=== PATIENT | female | born 1985 | race Caucasian/White ===

== ENCOUNTER 2018-07-24 15:46 | Emergency (ER) | payer BC, SELFPAY ==
[2018-07-24 15:48] VITALS: BP 110/85; PULSE 130; RESP 16; TEMP 37.1; O2SAT 96
--- NOTE | 2018-07-24 16:01 | DI.CT_ITS ---
SYMPTOMS/DIAGNOSIS: ABDOMINAL PAIN, RLQ, ? APPENDIX, KIDNEY STONE, UTI CT SCAN OF THE ABDOMEN AND PELVIS: CT scan of the abdomen and pelvis was performed following the uneventful administration of intravenous contrast material. There are no priors for comparison. In the lung bases, there is an air-space opacity in the left lower lobe seen on the upper-most images. This may represent atelectasis or pneumonia. The lungs are otherwise clear. The liver has a normal size. No suspicious hepatic masses are seen. The portal and superior mesenteric veins are patent. The gallbladder is negative. No biliary ductal dilatation is seen. The pancreas, spleen and adrenal glands are unremarkable. The kidneys show normal and symmetric enhancement. No evidence of a solid renal mass or obstruction. The urinary bladder is intact. The reproductive organs are visualized and are unremarkable, except for a 2.7 cm cystic structure seen in the right adnexa, which appears separate from the right ovary. Differential considerations include a paraovarian cyst. Tuboovarian abscess or other cystic pelvic structures cannot be excluded. There is a normal appendix present. There are mildly dilated loops of small bowel proximally. The mid and distal small bowel is of normal caliber. This may represent a focal ileus or early obstruction. The colon appears unremarkable. The abdominal aorta is of normal caliber. No significant abdominal or pelvic adenopathy, ascites or pneumoperitoneum is present. The bones are intact. Minimal degenerative changes are seen in the lower thoracic spine and L5-S1. IMPRESSION: 1. Air-space opacity in the left lung base. This may represent atelectasis or pneumonia. 2. Mildly dilated loops of proximal small bowel with normal mid and distal caliber small bowel. This may represent a focal ileus or early obstruction. Please correlate clinically. 3. Almost 3 cm cystic structure in the right adnexa. Differential considerations include a paraovarian cyst or other cystic structures. A tuboovarian abscess cannot be excluded. Please correlate clinically. 4. Normal appendix.
--- NOTE | 2018-07-24 16:05 | W.ED.GENAD ---
Discharge Plan Disposition Patient Disposition: HOME Condition: Good Discharge Details Chief Complaint: FlankPain Clinical Impression: Ovarian cyst Primary Care Provider: Gordo Linton ED Provider: Jose Maria Amezquita Home Meds and New Rx's Prescriptions: Continue PNV cmb#95-ferrous fumarate-FA [] 1 EACH tablet 1 ea PO QD Qty: 90 RF: 4 ibuprofen 200 MG capsule 800 mg PO Q6H PRN RF: 0 gabapentin 300 MG capsule 2 cap PO BID MDD 1500 Qty: 360 RF: 6 ranitidine HCl 150 MG capsule 150 mg PO BID Qty: 180 RF: 3 acetaminophen [Tylenol] 325 MG tablet 650 mg PO Q4H PRN PRNRF: 0 Discontinued iwuuyqoiig-szfvkmzlyluyy-jago 1 EACH tablet 1 tab-cap PO Q4H PRN PRNQty: 60 RF: 1 albuterol sulfate [ProAir HFA] 8.5 GM HFA aerosol inhaler 2 puff Inhalation Q6H PRN Qty: 1 RF: 4 amoxicillin-pot clavulanate [Augmentin] 1 EACH tablet 1 tab-cap PO Q12H Qty: 20 RF: 0 Discharge Instructions Instructions: Ovarian Cyst (ED) Additional Instructions: Return immediately for any new or significant worsening of symptoms including severe increase in pain, fever chills, persistent nausea vomiting. Otherwise call women's wellness center and follow-up with OB as needed for reassessment of ovarian cyst. Referrals: [facility] [Provider Group] (Please call the office for arrangement of follow-up appointment in the next couple weeks. ) Medical Decision Making Patient being sent over from the urgent care clinic for chief complaint of right flank pain. Patient states that this started yesterday in the flank but now is specifically more tender in the right lower quadrant. Physical exam is positive for significant right quadrant tenderness and also right CVA tenderness that is moderate. Physical exam is otherwise unremarkable. Patient offered pain medication pending results of labs and CT imaging but she denied any need for medication at this time for pain but requested nausea meds. Zofran was ordered. Review of CT imaging shows possible concerning finding of a cyst that is 3 cm x 1.4 cm adjacent to the right ovary which radiologist states is possible tubo-ovarian abscess. Radiologist also states consolidation left lower lobe may represent atelectasis or pneumonia which I feel is more atelectasis given the patient is afebrile with clear lung sounds, she mentions normal appendix, and dilated loops of small bowel may represent obstruction versus ileus. Patient is passing gas and having normal bowel movements so I doubt obstruction so I do not feel that any further investigation is needed. Vaginal exam was performed and patient does have mild cervical motion tenderness with some right adnexal tenderness. Swabs were sent but physical exam was otherwise unremarkable. spoke with LEAK PATCHER on-call and Dr. William who recommended a ultrasound for further evaluation. We were able to get a hvac/r service technician to come in after hours and perform this study. Patient is stable, afebrile, no significant leukocytosis on labs and labs are otherwise nondiagnostic. Ultrasound shows a paraovarian cysts with no other abnormalities. Patient reassessed and states improvement in discomfort after receiving ketorolac injection and remains afebrile and otherwise stable. Discussed with patient need to come back for any new or significant worsening of symptoms including fever chills, severe worsening of pain, nausea vomiting. Patient otherwise to follow-up with women's wellness later this week. I did communicate ultrasound imaging results to OB on-call. After discussion of diagnosis and plan of care patient has no further needs, questions, or concerns and states clear understanding to return to the emergency department for any worsening symptoms. patient was encouraged to utilize ibuprofen [id number] as needed for pain control HPI General Mode of arrival: ambulatory. Date/Time Provider Initiated Documentation: 07/24/18 15:53. Limitations to Documentation: no limitations. Information obtained by: patient, RN/MD and RN notes reviewed. History of Present Illness 32 year old F presents to the emergency department with the chief complaint of Right abd/flank pain, described as mild, Quality is described as aching (crampy), and is localized to the abdomen. Patient flank. Patient started experiencing this day(s) (1) and it has been constant. No exacerbating factors reported . Patient did receive the following treatments prior to arrival, NSAID Related Data Home Medications Medication Instructions Recorded Confirmed acetaminophen [Tylenol] 650 mg PO Q4H PRN PRN tab 02/17/16 03/20/18 PNV cmb#95-ferrous fumarate-FA 1 ea PO QD #90 tab 07/29/17 [] ibuprofen 800 mg PO Q6H PRN tab-cap 11/21/17 06/22/18 gabapentin 2 cap PO BID #360 tab-cap MDD 1500 10/21/17 ranitidine HCl 150 mg PO BID #180 tab-cap 01/02/18 Previous Rx's Medication Instructions Recorded acetaminophen [Tylenol] 650 mg PO Q4H PRN PRN tab 02/17/16 PNV cmb#95-ferrous fumarate-FA 1 ea PO QD #90 tab 07/29/17 [] gabapentin 2 cap PO BID #360 tab-cap MDD 1500 10/21/17 ranitidine HCl 150 mg PO BID #180 tab-cap 01/02/18 Allergies Allergy/AdvReac Type Severity Reaction Status Date / Time latex AdvReac Mild ITCHING,DRY Unverified 03/23/18 15:24 SKIN General Stated Complaint: FlankPain JACY: 3 Review of Systems Constitutional Reports chills, Reports fever(s) and Reports poor appetite ENT Reports nasal congestion and Reports sore throat Cardiovascular Denies chest pain and Denies dyspnea Respiratory Reports cough and Denies dyspnea Gastrointestinal Reports as per HPI, Reports abdominal pain, Denies melena, Denies change in bowel habits, Denies constipation, Denies diarrhea, Reports nausea and Denies vomiting Genitourinary Denies hematuria, Reports dysuria, Denies urinary incontinence, Denies urinary hesitancy and Denies urinary urgency Integumentary/Breasts Denies rash PFSH Family History Grandfather Essential hypertension Heart disease Family history of colon cancer Grandmother Essential hypertension Diabetes Heart disease aunt Diabetes Mother No problems noted. Father Essential hypertension Alcohol abuse Hyperlipidemia Sister Mental disorder Asthma Brother No problems noted. Grandfather Heart disease Grandmother No problems noted. Social History Smoking/Tobacco Use Status: Former Tobacco Use Surgical History Ligation of fallopian tube (02/16/16) Exam Const General: cooperative Orientation: alert, awake and oriented x3 Resp Effort & Inspection: normal respiratory effort and able to speak in complete sentences Auscultation: clear to auscultation bilaterally Cardio Rate: regular rate Rhythm: regular rhythm Heart Sounds: S1 normal and S2 normal GI Palpation: soft, no hepatosplenomegaly, not firm, no guarding, no masses, no pulsatile masses, not rigid, no splenomegaly and tender in the RLQ, at McBurney's point and Rovsing's sign positive; Starks's sign negative Auscultation: normal bowel sounds General: other External Female Exam: external appearance normal Speculum Exam - Vagina: normal appearance of the vagina and normal vaginal discharge Speculum Exam - Cervix: normal appearance of the cervix Bimanual Exam- Vagina & Uterus: normal vaginal palpation and cervical motion tenderness Bimanual Exam- Adnexa, other: adnexal tenderness on the right Back/Spine/Pelvis Back: CVA tenderness (right side) Neuro General: alert, awake, oriented x3, gait normal and moves all extremities Course Vital Signs Temperature 37.1 C 07/24/18 15:48 Pulse 130 H 07/24/18 15:48 Respiratory Rate 16 07/24/18 15:48 Blood Pressure 110/85 07/24/18 15:48 Pulse Oximetry 96 07/24/18 15:48 Temperature 37.1 C 07/24/18 15:48 Temperature Source Skin 07/24/18 15:48 Pulse 130 H 07/24/18 15:48 Respiratory Rate 16 07/24/18 15:48 Respiratory Effort 07/24/18 15:51 Blood Pressure 110/85 07/24/18 15:48 Blood Pressure Position Sitting 07/24/18 15:48 Pulse Oximetry 96 07/24/18 15:48 Oxygen Delivery Method Room Air 07/24/18 15:48 Oxygen Flow Rate 0 07/24/18 15:48 Pain Level 5 07/24/18 15:52
--- NOTE | 2018-07-24 16:09 | ED.GENADUL_ITS ---
Discharge Plan Disposition Patient Disposition: HOME Condition: Good Discharge Details Chief Complaint: FlankPain Clinical Impression: Ovarian cyst Primary Care Provider: Gordo Linton ED Provider: Jose Maria Amezquita Home Meds and New Rx's Prescriptions: Continue PNV cmb#95-ferrous fumarate-FA [] 1 EACH tablet 1 ea PO QD Qty: 90 RF: 4 ibuprofen 200 MG capsule 800 mg PO Q6H PRN RF: 0 gabapentin 300 MG capsule 2 cap PO BID MDD 1500 Qty: 360 RF: 6 ranitidine HCl 150 MG capsule 150 mg PO BID Qty: 180 RF: 3 acetaminophen [Tylenol] 325 MG tablet 650 mg PO Q4H PRN PRNRF: 0 Discontinued oxaxtbjovl-ysocspkwqbjbq-dlki 1 EACH tablet 1 tab-cap PO Q4H PRN PRNQty: 60 RF: 1 albuterol sulfate [ProAir HFA] 8.5 GM HFA aerosol inhaler 2 puff Inhalation Q6H PRN Qty: 1 RF: 4 amoxicillin-pot clavulanate [Augmentin] 1 EACH tablet 1 tab-cap PO Q12H Qty: 20 RF: 0 Discharge Instructions Instructions: Ovarian Cyst (ED) Additional Instructions: Return immediately for any new or significant worsening of symptoms including severe increase in pain, fever chills, persistent nausea vomiting. Otherwise call women's wellness center and follow-up with OB as needed for reassessment of ovarian cyst. Referrals: [facility] [Provider Group] (Please call the office for arrangement of follow-up appointment in the next couple weeks. ) Medical Decision Making Patient being sent over from the urgent care clinic for chief complaint of right flank pain. Patient states that this started yesterday in the flank but now is specifically more tender in the right lower quadrant. Physical exam is positive for significant right quadrant tenderness and also right CVA tenderness that is moderate. Physical exam is otherwise unremarkable. Patient offered pain medication pending results of labs and CT imaging but she denied any need for medication at this time for pain but requested nausea meds. Zofran was ordered. Review of CT imaging shows possible concerning finding of a cyst that is 3 cm x 1.4 cm adjacent to the right ovary which radiologist states is possible tubo- ovarian abscess. Radiologist also states consolidation left lower lobe may represent atelectasis or pneumonia which I feel is more atelectasis given the patient is afebrile with clear lung sounds, she mentions normal appendix, and dilated loops of small bowel may represent obstruction versus ileus. Patient is passing gas and having normal bowel movements so I doubt obstruction so I do not feel that any further investigation is needed. Vaginal exam was performed and patient does have mild cervical motion tenderness with some right adnexal tenderness. Swabs were sent but physical exam was otherwise unremarkable. spoke with BRIDGE CRANE OPERATOR on-call and Dr. William who recommended a ultrasound for further evaluation. We were able to get a paint prep technician to come in after hours and perform this study. Patient is stable, afebrile, no significant leukocytosis on labs and labs are otherwise nondiagnostic. Ultrasound shows a paraovarian cysts with no other abnormalities. Patient reassessed and states improvement in discomfort after receiving ketorolac injection and remains afebrile and otherwise stable. Discussed with patient need to come back for any new or significant worsening of symptoms including fever chills, severe worsening of pain, nausea vomiting. Patient otherwise to follow-up with women's wellness later this week. I did communicate ultrasound imaging results to OB on-call. After discussion of diagnosis and plan of care patient has no further needs, questions, or concerns and states clear understanding to return to the emergency department for any worsening symptoms. patient was encouraged to utilize ibuprofen [id number] as needed for pain control HPI General Mode of arrival: ambulatory . Date/Time Provider Initiated Documentation: 07/24/18 15:53 . Limitations to Documentation: no limitations . Information obtained by: patient, RN/MD and RN notes reviewed . History of Present Illness 32 year old F presents to the emergency department with the chief complaint of Right abd/flank pain, described as mild, Quality is described as aching ( crampy), and is localized to the abdomen. Patient flank. Patient started experiencing this day(s) (1) and it has been constant. No exacerbating factors reported . Patient did receive the following treatments prior to arrival, NSAID Related Data Home Medications Medication Instructions Recorded Confirmed acetaminophen [Tylenol] 650 mg PO Q4H PRN PRN tab 02/17/16 03/20/18 PNV cmb#95-ferrous fumarate-FA 1 ea PO QD #90 tab 07/29/17 [] ibuprofen 800 mg PO Q6H PRN tab-cap 11/21/17 06/22/18 gabapentin 2 cap PO BID #360 tab-cap MDD 1500 10/21/17 ranitidine HCl 150 mg PO BID #180 tab-cap 01/02/18 Previous Rx's Medication Instructions Recorded acetaminophen [Tylenol] 650 mg PO Q4H PRN PRN tab 02/17/16 PNV cmb#95-ferrous fumarate-FA 1 ea PO QD #90 tab 07/29/17 [] gabapentin 2 cap PO BID #360 tab-cap MDD 1500 10/21/17 ranitidine HCl 150 mg PO BID #180 tab-cap 01/02/18 Allergies Allergy/AdvReac Type Severity Reaction Status Date / Time latex AdvReac Mild ITCHING,DRY Unverified 03/23/18 15:24 SKIN General Stated Complaint: FlankPain JACY: 3 Review of Systems Constitutional Reports chills, Reports fever(s) and Reports poor appetite ENT Reports nasal congestion and Reports sore throat Cardiovascular Denies chest pain and Denies dyspnea Respiratory Reports cough and Denies dyspnea Gastrointestinal Reports as per HPI, Reports abdominal pain, Denies melena, Denies change in bowel habits, Denies constipation, Denies diarrhea, Reports nausea and Denies vomiting Genitourinary Denies hematuria, Reports dysuria, Denies urinary incontinence, Denies urinary hesitancy and Denies urinary urgency Integumentary/Breasts Denies rash PFSH Family History Grandfather Essential hypertension Heart disease Family history of colon cancer Grandmother Essential hypertension Diabetes Heart disease aunt Diabetes Mother No problems noted. Father Essential hypertension Alcohol abuse Hyperlipidemia Sister Mental disorder Asthma Brother No problems noted. Grandfather Heart disease Grandmother No problems noted. Social History Smoking/Tobacco Use Status: Former Tobacco Use Surgical History Ligation of fallopian tube (02/16/16) Exam Const General: cooperative Orientation: alert, awake and oriented x3 Resp Effort & Inspection: normal respiratory effort and able to speak in complete sentences Auscultation: clear to auscultation bilaterally Cardio Rate: regular rate Rhythm: regular rhythm Heart Sounds: S1 normal and S2 normal GI Palpation: soft, no hepatosplenomegaly, not firm, no guarding, no masses, no pulsatile masses, not rigid, no splenomegaly and tender in the RLQ, at McBurney' s point and Rovsing's sign positive; Starks's sign negative Auscultation: normal bowel sounds General: other External Female Exam: external appearance normal Speculum Exam - Vagina: normal appearance of the vagina and normal vaginal discharge Speculum Exam - Cervix: normal appearance of the cervix Bimanual Exam- Vagina & Uterus: normal vaginal palpation and cervical motion tenderness Bimanual Exam- Adnexa, other: adnexal tenderness on the right Back/Spine/Pelvis Back: CVA tenderness (right side) Neuro General: alert, awake, oriented x3, gait normal and moves all extremities Course Vital Signs Temperature 37.1 C 07/24/18 15:48 Pulse 130 H 07/24/18 15:48 Respiratory Rate 16 07/24/18 15:48 Blood Pressure 110/85 07/24/18 15:48 Pulse Oximetry 96 07/24/18 15:48 Temperature 37.1 C 07/24/18 15:48 Temperature Source Skin 07/24/18 15:48 Pulse 130 H 07/24/18 15:48 Respiratory Rate 16 07/24/18 15:48 Respiratory Effort 07/24/18 15:51 Blood Pressure 110/85 07/24/18 15:48 Blood Pressure Position Sitting 07/24/18 15:48 Pulse Oximetry 96 07/24/18 15:48 Oxygen Delivery Method Room Air 07/24/18 15:48 Oxygen Flow Rate 0 07/24/18 15:48 Pain Level 5 07/24/18 15:52
[2018-07-24] MEDS: Ondansetron 4 MG/2 ML VIAL IVP (16:22)
[2018-07-24] MEDS: Normal Saline 1,000 ML 1000 ML IV (16:22)
[2018-07-24 16:26] LABS: Abs Immature Grans 0.02 k/cumm (0.0-0.09); Absolute Basophil Count 0.02 k/cumm (0.0-0.2); Absolute Eosinophil Count 0.02 k/cumm (0.0-0.7); Absolute Lymphocyte Count 1.67 k/cumm (1.2-3.4); Absolute Monocyte Count 0.81 k/cumm (0.11-0.7); Absolute Neutrophil Count 6.54 k/cumm (1.2-6.7); Basophils % 0.2; Eosinophils % 0.2; HCT 43.4 % (36.0-46.0); HGB 14.3 g/dL (12.0-15.5); Immature Grans % 0.2; Lymphocytes % 18.4; Mean Corp. HGB Concentration 32.9 g/dL (32.0-36.0); Mean Corpuscular Hemoglobin 27.9 pg (27.0-33.0); Mean Corpuscular Volume 84.8 fL (80-95); Mean Platelet Volume 10.9 fL (8.0-11.0); Monocytes % 8.9; Neutrophils % 72.1; Platelet Count 273 x1000/uL (130-400); RBC 5.12 m/cumm (4.00-5.20); RBC Distribution Width 13.3 % (11.7-14.6); White Blood Cell Count 9.08 k/cumm (4.4-10.8)
[2018-07-24 16:34] LABS: Bilirubin Negative (Negative); Blood Moderate (Negative); Clarity Clear; Glucose Negative (Negative); Ketones 15 mg/dL (Negative); Leukocyte Esterase Negative (Negative); Nitrite Negative (Negative); Specific Gravity <= 1.005 (1.005-1.025); Urobilinogen 0.2 EU/dL (Up TO 0.2)
[2018-07-24 16:40] LABS: ALT 52 U/L (12-78); AST 42 U/L (15-37); Albumin 3.8 g/dL (3.4-5.0); Alkaline Phosphatase 111 U/L (46-116); Anion Gap 12.4 mmol/L (3-11); BUN 12 mg/dL (7-18); Bilirubin, Total 0.4 mg/dL (0.2-1.0); CO2 25.6 mmol/L (21.0-32.0); Calcium 9.2 mg/dL (8.5-10.1); Chloride 97 mmol/L (98-107); Glucose 85 mg/dL (70-100); Lipase 86 U/L (73-393); Sodium 135 mmol/L (136-145); Total Protein 8.2 g/dL (6.4-8.2)
[2018-07-24 16:51] LABS: Bacteria Few HPF (Negative); C & S Indicated? No; Casts Negative LPF (Negative); Crystals Negative HPF (Negative); Epithelial Cells Moderate HPF (Negative); Mucus Negative (Negative); Other Cells Negative (Negative); RBC Negative (0-2)
[2018-07-24] MEDS: Omnipaque 350 MG/ML 100 ML BTL IJ (16:52)
--- NOTE | 2018-07-24 17:21 | DI.VRAD_ITS ---
EXAM: CT Abdomen and Pelvis With Intravenous Contrast EXAM DATE/TIME: 07/24/2018 4:03 PM CLINICAL HISTORY: 32 years old, female; Pain; Abdominal pain; Generalized TECHNIQUE: Axial computed tomography images of the abdomen and pelvis with intravenous contrast. Coronal and sagittal reformatted images were created and reviewed. COMPARISON: [facility] [place] [facility] ULTRASOUND 07/13/2015 1:31 PM FINDINGS: Lower thorax: Consolidation in the left lower lobe may represent atelectasis or pneumonia. ABDOMEN: Liver: Normal. No mass. Gallbladder and bile ducts: Normal. No calcified stones. No ductal dilation. Pancreas: Normal. No ductal dilation. Spleen: Normal. No splenomegaly. Adrenals: Normal. No mass. Kidneys and ureters: Normal. No hydronephrosis. Stomach and bowel: Dilated loops of small bowel may represent obstruction or ileus. Small bowel tapers distally. Low-attenuation bowel wall thickening is seen throughout the colon consistent with colitis. Differential diagnosis includes decompressed bowel.. Appendix: Normal appendix. PELVIS: Bladder: Unremarkable as visualized. Reproductive: 3 x 1.4 cm right adnexal cystic structure appears separate from the right ovary.. ABDOMEN and PELVIS: Intraperitoneal space: Normal. No free air. No significant fluid collection. Bones/joints: No acute fracture. No dislocation. Soft tissues: Unremarkable. Vasculature: Normal. No abdominal aortic aneurysm. Lymph nodes: Normal. No enlarged lymph nodes. IMPRESSION: 1. Consolidation in the left lower lobe may represent atelectasis or pneumonia. 2. Dilated loops of small bowel may represent obstruction or ileus. Small bowel tapers distally. 3. Normal appendix. 4. 3 x 1.4 cm right adnexal cystic structure appears separate from the right ovary. May represent paraovarian cyst. Differential includes infection/tubo-ovarian abscess 5. Low-attenuation bowel wall thickening is seen throughout the colon consistent with colitis. Differential diagnosis includes decompressed bowel.. Impression. Dictated and Authenticated by: Blanche Velasco MD. Ordering:JENNIFER BERNAL MD
[2018-07-24] MEDS: Acetaminophen 500 MG TAB 1000 MG PO (17:43)
--- NOTE | 2018-07-24 19:21 | DI.US_ITS ---
SYMPTOMS/DIAGNOSIS: ABNORMAL CT FINDINGS, POSSIBLE TUBOOVARIAN ABSCESS PELVIC ULTRASOUND: Comparison CT scan from the same day. The uterus measures 9.1 x 3.7 x 5.5 cm. The endometrial stripe is within normal limits at 0.4 cm. No suspicious uterine masses are seen. The left ovary measures 2.8 x 2.9 x 2.3 cm. Small follicular cysts are seen. There is normal blood flow. No evidence of torsion is seen. The right ovary measures 3.5 x 1.7 x 3.2 cm. Small follicular cysts are present. There is normal blood flow seen to the right ovary. There is a 2.8 x 3.8 x 1.6 cm cystic structure superior and adjacent to the right ovary. This may represent a paraovarian cyst. No solid component is present in the cystic structure. No free pelvic fluid is seen. No hydronephrosis is present. IMPRESSION: 1. A 3.8 cm simple cystic structure adjacent to the right ovary, which may represent a paraovarian cyst. 2. Otherwise normal appearance of the ovaries and uterus.
[2018-07-24] MEDS: Ketorolac 30 MG/ML VIAL IVP (19:28)
[2018-07-24 19:50] VITALS: BP 96/59; PULSE 109; RESP 20; TEMP 37.1; O2SAT 95
--- NOTE | 2018-07-24 21:24 | DI.VRAD_ITS ---
EXAM: US Pelvis Complete, Transabdominal and US Pelvis, Transvaginal EXAM DATE/TIME: 07/24/2018 7:24 PM CLINICAL HISTORY: 32 years old, female; Pain; Pelvic pain TECHNIQUE: Real-time transabdominal and transvaginal pelvic ultrasound (complete) with image documentation. Transvaginal imaging was used for better evaluation of the endometrium and adnexa. COMPARISON: CT ABDOMEN PELVIS W 07/24/2018 4:32 PM FINDINGS: Uterus/cervix: Uterus measures 9.1 x 5.5 x 3.7 cm Endometrium 4 mm Right adnexa: Right ovary 3.5 x 3.2 x 1.7 cm Cystic structure superior to the right ovary measures 2.8 x 3.8 x 1.6 cm and may represent a paraovarian cyst Left adnexa: Left ovary measures 2.8 x 2.3 x 2.9 cm Free fluid: None. Bladder: Normal. Vasculature: No duplex assessment; consequently torsion cannot be ruled out. If torsion is suspected clinically, recommend repeat study with duplex assessment of both ovaries. Other findings: Left kidney 11.7 cm; right kidney 10.7 cm. No hydronephrosis or mass IMPRESSION: No duplex assessment; consequently torsion cannot be ruled out. If torsion is suspected clinically, recommend repeat study with duplex assessment of both ovaries. Cystic structure superior to the right ovary measures 2.8 x 3.8 x 1.6 cm and may represent a paraovarian cyst Dictated and Authenticated by: Blanche Velasco MD. Ordering:JENNIFER BERNAL MD
[2018-07-24 21:54] VITALS: BP 101/59; PULSE 109; RESP 20; TEMP 37.1; O2SAT 95
[2018-07-27 15:22] LABS: Chlamydia Result Negative; GC Result Negative; Specimen Description CERVIX
== END 2018-07-24 21:54 | disposition home or self-care (01) ==
PROVIDERS: Emergency Provider Nurse Practitioner Family; PCP Family Medicine
DX: N83.201 Unspecified ovarian cyst, right side (principal)
CPT/HCPCS: 36415; 80053; 83690; 87491; 87591; 96361; 96374; 96375; 99285; 74177; 76830; 76856; 81003; 81015; 85025; 87480; 87510; 87660; J1885; J2405; J3490

== ENCOUNTER 2018-07-28 13:20 | Outpatient (REF) | payer BC, SELFPAY | END 2018-07-28 13:40 | LOC: LBN 13:20 | PROVIDERS: PCP Family Medicine; Visit Provider Family Medicine | DX: J00 Acute nasopharyngitis [common cold] (principal) | CPT/HCPCS: 87449 ==

== ENCOUNTER 2018-08-02 08:58 | Emergency (ER) | payer BC, SELFPAY ==
[2018-08-02] VITALS (7 sets, daily range): BP systolic 112–177; BP diastolic 68–77; PULSE 96–103; RESP 4–18; TEMP 36.5–36.8; O2SAT 91–97
--- NOTE | 2018-08-02 09:09 | DI.RAD_ITS ---
SYMPTOM/DIAGNOSIS: COUGH, SOB PA AND LATERAL CHEST: Comparison is made with 08/02/14. Heart size and pulmonary vasculature are within normal limits. There are increased lung markings at the lateral aspect of the left heart border which may represent atelectasis or pneumonia. The lungs are otherwise clear. No effusions or pneumothoraces are identified. The bones are intact. IMPRESSION: Question of a left basilar infiltrate. This may represent atelectasis or pneumonia.
[2018-08-02] MEDS: predniSONE 20 MG TAB 60 MG PO (09:15)
[2018-08-02] MEDS: Albuterol/Ipratropium 3 ML UPD VIAL UPD (09:15)
--- NOTE | 2018-08-02 10:22 | DI.VRAD_ITS ---
EXAM: XR Chest, 2 Views EXAM DATE/TIME: 08/02/2018 9:41 AM CLINICAL HISTORY: 32 years old, female; Signs and symptoms; Other: Cough; Additional info: PT stated cough for a wk and PT have asthma TECHNIQUE: XR of the chest, 2 views. COMPARISON: CR CHEST 2 VIEWS PA,LAT 08/02/2014 7:33 PM FINDINGS: Lungs: Mild opacity in the left base may represent minimal atelectasis or pneumonia. It was not present on the prior study. Pleural space: Unremarkable. No pleural effusion. No pneumothorax. Heart/Mediastinum: Stable cardiac silhouette Bones/joints: Osseous structures are stable IMPRESSION: Mild opacity in the left base may represent minimal atelectasis or pneumonia. It was not present on the prior study. Dictated and Authenticated by: Blanche Velasco MD. Ordering:DINORAH GREEN MD
--- NOTE | 2018-08-02 10:59 | ED.GENADUL_ITS ---
Discharge Plan Disposition Patient Disposition: HOME Discharge Details Chief Complaint: RespSymp Clinical Impression: Acute asthma exacerbation, Pneumonia Primary Care Provider: Gordo Linton ED Provider: Dutch Alba Home Meds and New Rx's Prescriptions: New prednisone 20 mg tablet 20 mg PO BID Qty: 8 RF: 0 levofloxacin [Levaquin] 750 mg tablet 750 mg PO DAILY Qty: 4 RF: 0 fluconazole 150 mg tablet 150 mg PO Q3D 0 Days RF: 0 ipratropium-albuterol 0.5 mg-3 mg(2.5 mg base)/3 mL solution for nebulization 3 ml IH QID Qty: 90 RF: 0 Continue promethazine-codeine 6.25-10 mg/5 mL syrup 5 ml PO Q6H PRN (Reason: cough) Qty: 118 RF: 0 benzonatate 100 mg capsule 100 mg PO TID PRN (Reason: cough) Qty: 30 RF: 2 qwcsvzbmol-fojjqslugb-tvx-cod [id number] mg capsule 2 cap PO Q4H PRN (Reason: pain) Qty: 90 RF: 2 PNV cmb#95-ferrous fumarate-FA [] 1 EACH tablet 1 ea PO QD Qty: 90 RF: 4 ibuprofen 200 MG capsule 800 mg PO Q6H PRN RF: 0 gabapentin 300 MG capsule 2 cap PO BID MDD 1500 Qty: 360 RF: 6 ranitidine HCl 150 MG capsule 150 mg PO BID Qty: 180 RF: 3 acetaminophen [Tylenol] 325 MG tablet 650 mg PO Q4H PRN PRNRF: 0 Discontinued albuterol sulfate 1.25 mg/3 mL solution for nebulization 1.25 mg IH QID PRN (Reason: shortness of breath or wheezing) Qty: 15 RF: 3 ondansetron HCl 4 mg tablet 4 mg PO QID PRN (Reason: nausea and vomiting) Qty: 14 RF: 1 Discharge Instructions Instructions: Asthma (ED), Pneumonia (ED) Additional Instructions: Please use albuterol inhaler with spacer 2 puffs every 4 hours as needed for shortness of breath and wheeze. Take antibiotic and prednisone as prescribed. Please contact your primary care physician to arrange follow-up. Return to the ER for any worsening or new concerning symptoms. Use fluconazole for yeast infection ONLY AFTER COMPLETING LEVAQUIN (antibiotic) . Stand Alone Forms: Work Release Referrals: Gordo Linton MD [Primary Care Provider] - Discharge Data Discharge Date/Time-TO BE ENTERED AT DEPARTURE: 08/02/18 12:19 Medical Decision Making 10:30 --32-year-old female with history of asthma, here with cough for the past 9 days, intermittently productive, now with shortness of breath and wheeze. Saturating low 90s. Wheezing. Will give duoneb x2 and predisone. 11:00 --chest x-ray interpreted by radiology: Mild opacity in left base may represent minimal atelectasis or pneumonia. It was not present on the prior study. Given her symptoms, I am worried about pneumonia. Plan to treat with Levaquin. Patient reassessed after 2 neb treatment. Breathing much easier. Feels better. Still with some wheeze on auscultation. Will repeat albuterol neb. 12:05 --patient improved after third neb treatment. Speaking in complete sentences with no resp distress. Patient requesting discharge. Saturating well. BP improved. I discussed with patient need to take antibiotic, prednisone and albuterol as prescribed, and need for timely follow-up with her primary care physician this week, and return to ED precautions. Patient requesting prescription for DuoNeb treatments at home. I will prescribe that she has a nebulizer machine. Patient requesting prescription for fluconazole as she has used infections in the past with antibiotic use. I reviewed medications interactions with her. She is instructed to use this only after completion of antibiotic should she have yeast infection symptoms. HPI General Mode of arrival: ambulatory . Date/Time Provider Initiated Documentation: 08/02/18 09:09 . Limitations to Documentation: no limitations . Information obtained by: patient . HPI Narrative: 32-year-old female with history of asthma, here with cough for the past 9 days, intermittently productive, now with shortness of breath and wheeze. Symptoms moderate to severe. Constant. Patient using albuterol nebs and not helping today. Some assoc pleuritic chest discomfort. No fever. Related Data Home Medications Medication Instructions Recorded Confirmed acetaminophen [Tylenol] 650 mg PO Q4H PRN PRN tab 02/17/16 08/02/18 PNV cmb#95-ferrous fumarate-FA 1 ea PO QD #90 tab 07/29/17 08/02/18 [] ibuprofen 800 mg PO Q6H PRN tab-cap 08/19/17 08/02/18 gabapentin 2 cap PO BID #360 tab-cap MDD 1500 10/21/17 08/02/18 ranitidine HCl 150 mg PO BID #180 tab-cap 01/02/18 08/02/18 benzonatate 100 mg capsule 100 mg PO TID PRN #30 cap 07/28/18 08/02/18 butalbital 50 mg-acetaminophen 325 2 cap PO Q4H PRN #90 cap 07/28/18 08/02/18 mg-caffeine 40 mg-codeine 30 mg cap promethazine 6.25 mg-codeine 10 5 ml PO Q6H PRN #118 ml 07/28/18 08/02/18 mg/5 mL syrup fluconazole 150 mg PO Q3D 0 Days tab 08/02/18 ipratropium-albuterol 3 ml IH QID #90 ml 08/02/18 levofloxacin [Levaquin] 750 mg PO DAILY #4 tab 08/02/18 prednisone 20 mg PO BID #8 tab 08/02/18 Previous Rx's Medication Instructions Recorded acetaminophen [Tylenol] 650 mg PO Q4H PRN PRN tab 02/17/16 PNV cmb#95-ferrous fumarate-FA 1 ea PO QD #90 tab 07/29/17 [] gabapentin 2 cap PO BID #360 tab-cap MDD 1500 10/21/17 ranitidine HCl 150 mg PO BID #180 tab-cap 01/02/18 benzonatate 100 mg capsule 100 mg PO TID PRN #30 cap 07/28/18 butalbital 50 mg-acetaminophen 325 2 cap PO Q4H PRN #90 cap 07/28/18 mg-caffeine 40 mg-codeine 30 mg cap promethazine 6.25 mg-codeine 10 5 ml PO Q6H PRN #118 ml 07/28/18 mg/5 mL syrup fluconazole 150 mg PO Q3D 0 Days tab 08/02/18 ipratropium-albuterol 3 ml IH QID #90 ml 08/02/18 levofloxacin [Levaquin] 750 mg PO DAILY #4 tab 08/02/18 prednisone 20 mg PO BID #8 tab 08/02/18 Allergies Allergy/AdvReac Type Severity Reaction Status Date / Time latex AdvReac Mild ITCHING,DRY Unverified 08/02/18 09:07 SKIN General Stated Complaint: RespSymp JACY: 3 Review of Systems Review of Systems All systems reviewed & are unremarkable except as noted in HPI and below Respiratory Reports cough PFSH Family History Grandfather Essential hypertension Heart disease Family history of colon cancer Grandmother Essential hypertension Diabetes Heart disease aunt Diabetes Mother No problems noted. Father Essential hypertension Alcohol abuse Hyperlipidemia Sister Mental disorder Asthma Brother No problems noted. Grandfather Heart disease Grandmother No problems noted. Medical History Gestational diabetes mellitus (Resolved) Social History Smoking/Tobacco Use Status: Former Tobacco Use Surgical History Ligation of fallopian tube (02/16/16) Exam Const General: cooperative and no acute distress HENMT Head: normocephalic and atraumatic Mouth: moist mucous membranes Eyes Conjunctivae: normal conjunctivae Sclera: normal sclerae EOM: EOM intact bilaterally Neck Neck: trachea midline and supple Resp Effort & Inspection: able to speak in complete sentences and not labored Auscultation: no rales, rhonchi and wheezes expiratory wheezes and scattered wheezes Cardio Jugular venous pressure: no JVD Rate: regular rate and not tachycardic Rhythm: regular rhythm GI Palpation: soft, not firm, no guarding, no masses, not rigid and nontender Skin General skin exam: no rashes or lesions noted Neuro General: alert, awake, oriented x3 and tone normal Extrem General: no edema Psych Appearance: grossly normal Mental Status: mental status grossly normal Speech and Movement: speech and movement normal Course Vital Signs Temperature 36.5 C 08/02/18 09:01 Pulse 101 H 08/02/18 09:01 Respiratory Rate 18 08/02/18 09:01 Blood Pressure 177/77 H 08/02/18 09:01 Pulse Oximetry 91 L 08/02/18 09:01 Temperature 36.5 C 08/02/18 09:01 Temperature Source Temporal Artery Scan 08/02/18 09:01 Pulse 101 H 08/02/18 09:01 Respiratory Rate 18 08/02/18 09:01 Respiratory Effort Accessory Muscle Use 08/02/18 09:18 Respiratory Depth Shallow 08/02/18 09:18 Blood Pressure 177/77 H 08/02/18 09:01 Blood Pressure Position Sitting 08/02/18 09:01 Pulse Oximetry 91 L 08/02/18 09:15 Oxygen Delivery Method Room Air 08/02/18 09:15 Oxygen Flow Rate 0 08/02/18 09:15
[2018-08-02] MEDS: Albuterol 2.5 MG/3 ML INH SOLN VIAL UPD (11:10)
[2018-08-02] MEDS: LEVOFLOXACIN 500 MG, LEVOFLOXACIN 250 MG 750 MG PO (11:10)
[2018-08-02] MEDS: Inhaler, Assist Device 1 EACH MC (12:16)
--- NOTE | 2018-08-05 10:36 | NUR.NOTE ---
Nursing Note: Patient was seen by PCP on 08/03 for follow up from ER visit on 08/02/18 for asthma/pneumonia.
== END 2018-08-02 12:19 | disposition home or self-care (01) ==
PROVIDERS: Emergency Provider Student in an Organized Health Care Education/Training Program; PCP Family Medicine
DX: J44.0 Chronic obstructive pulmonary disease with (acute) lower respiratory infection (principal); J18.9 Pneumonia, unspecified organism; J45.909 Unspecified asthma, uncomplicated; Z87.891 Personal history of nicotine dependence
CPT/HCPCS: 94640; 99285; 71046; J7512; J7613; J7620

== ENCOUNTER 2018-08-10 09:47 | Emergency (ER) | payer BC, SELFPAY ==
[2018-08-10 10:00] VITALS: BP 122/74; PULSE 107; RESP 20; TEMP 36.4; O2SAT 96
--- NOTE | 2018-08-10 11:23 | DI.RAD_ITS ---
SYMPTOM/DIAGNOSIS: COUGH CHEST X-RAY: PA , lateral. Comparison 08/02/18 The heart is normal in size. The lungs are clear. The mediastinal structures and pleura appear intact. CONCLUSION: Normal chest.
[2018-08-10] MEDS: predniSONE 20 MG TAB 60 MG PO (12:40)
[2018-08-10 12:45] VITALS: RESP 7
[2018-08-10] MEDS: Albuterol/Ipratropium 3 ML UPD VIAL UPD (12:45)
--- NOTE | 2018-08-10 13:09 | ED.GENADUL_ITS ---
Discharge Plan Disposition Patient Disposition: HOME Condition: Stable Discharge Details Chief Complaint: RespSymp Clinical Impression: Asthma exacerbation Primary Care Provider: Gordo Linton ED Provider: Jose Maria Amezquita Home Meds and New Rx's Prescriptions: New prednisone 20 mg tablet 20 mg PO DAILY Qty: 7 RF: 0 Continue promethazine-codeine 6.25-10 mg/5 mL syrup 5 ml PO Q6H PRN (Reason: cough) Qty: 118 RF: 0 benzonatate 100 mg capsule 100 mg PO TID PRN (Reason: cough) Qty: 30 RF: 2 uljmccouww-ddujoyziud-qyy-cod [id number] mg capsule 2 cap PO Q4H PRN (Reason: pain) Qty: 90 RF: 2 PNV cmb#95-ferrous fumarate-FA [] 1 EACH tablet 1 ea PO QD Qty: 90 RF: 4 ibuprofen 200 MG capsule 800 mg PO Q6H PRN RF: 0 gabapentin 300 MG capsule 2 cap PO BID MDD 1500 Qty: 360 RF: 6 ranitidine HCl 150 MG capsule 150 mg PO BID Qty: 180 RF: 3 acetaminophen [Tylenol] 325 MG tablet 650 mg PO Q4H PRN PRNRF: 0 ipratropium-albuterol 0.5 mg-3 mg(2.5 mg base)/3 mL solution for nebulization 3 ml IH QID Qty: 90 RF: 0 Discontinued prednisone 20 mg tablet 20 mg PO BID Qty: 8 RF: 0 levofloxacin [Levaquin] 750 mg tablet 750 mg PO DAILY Qty: 4 RF: 0 Discharge Instructions Instructions: Asthma (ED) Additional Instructions: Please feel free to return to the emergency department for any new or significant worsening of symptoms. Please start your new steroid prescription tomorrow due to getting your first dose in the emergency department. Otherwise take your other prescribed medications as you normally would. Referrals: Gordo Linton MD [Primary Care Provider] - 3 days Discharge Data Discharge Date/Time-TO BE ENTERED AT DEPARTURE: 08/10/18 13:12 Medical Decision Making Patient presenting to the emergency department chief complaint of shortness of breath. Patient states 2 weeks ago she started having cold-like symptoms seen here in the emergency department approximately a week ago and diagnosed with pneumonia and placed upon antibiotics and steroids. Patient states that she initially improved and finished her antibiotics and steroids on but then over the past 48 hours she has had worsening chest tightness and shortness of breath. Physical exam does show scattered expiratory wheezes and diminished lung sounds in the lower bases. Chest x-ray was ordered for evaluation of further pneumonia. Patient given DuoNeb and 60 mg prednisone. Patient is not in any respiratory distress at this time. Review of radiological imaging and comparison to previous chest x-ray shows improvement of findings and at this time shows no acute findings no worsening or further pneumonia. Patient reassessed and had significant improvement of respiratory symptoms and only had mild scattered wheezes throughout and improvement of air movement through lower lung garcía. Patient states that she also does feel significantly better. Patient was encouraged to continue to use duo nebulizer as previously prescribed and ordered and patient placed upon steroid taper due to concern for asthma exacerbation. Patient was encouraged to return immediately to the emergency department for new or worsening symptoms but given patient's multiple visits I did place patient on care management list for follow-up in the next 3 days for reassessment. After discussion of diagnosis and plan of care patient has no further needs, questions, or concerns and states clear understanding to return to the emergency department for any worsening symptoms. HPI General Mode of arrival: ambulatory . Date/Time Provider Initiated Documentation: 08/10/18 10:24 . Limitations to Documentation: no limitations . Information obtained by: patient and RN notes reviewed . History of Present Illness 32 year old F presents to the emergency department with the chief complaint of Shortness of breath, Quality is described as other (Patient denies pain or discomfort), Patient started experiencing this week(s) (2) and it has been constant. Medication improves symptom(s), (Albuterol) No exacerbating factors reported . Patient did receive the following treatments prior to arrival, none Related Data Home Medications Medication Instructions Recorded Confirmed acetaminophen [Tylenol] 650 mg PO Q4H PRN PRN tab 02/17/16 08/10/18 PNV cmb#95-ferrous fumarate-FA 1 ea PO QD #90 tab 07/29/17 08/10/18 [] ibuprofen 800 mg PO Q6H PRN tab-cap 08/19/17 08/10/18 gabapentin 2 cap PO BID #360 tab-cap MDD 1500 10/21/17 08/10/18 ranitidine HCl 150 mg PO BID #180 tab-cap 01/02/18 08/10/18 benzonatate 100 mg capsule 100 mg PO TID PRN #30 cap 07/28/18 08/03/18 butalbital 50 mg-acetaminophen 325 2 cap PO Q4H PRN #90 cap 07/28/18 08/10/18 mg-caffeine 40 mg-codeine 30 mg cap promethazine 6.25 mg-codeine 10 5 ml PO Q6H PRN #118 ml 07/28/18 08/10/18 mg/5 mL syrup ipratropium-albuterol 3 ml IH QID #90 ml 08/02/18 08/10/18 prednisone 20 mg PO DAILY #7 tab 08/10/18 Previous Rx's Medication Instructions Recorded acetaminophen [Tylenol] 650 mg PO Q4H PRN PRN tab 02/17/16 PNV cmb#95-ferrous fumarate-FA 1 ea PO QD #90 tab 07/29/17 [] gabapentin 2 cap PO BID #360 tab-cap MDD 1500 10/21/17 ranitidine HCl 150 mg PO BID #180 tab-cap 01/02/18 benzonatate 100 mg capsule 100 mg PO TID PRN #30 cap 07/28/18 butalbital 50 mg-acetaminophen 325 2 cap PO Q4H PRN #90 cap 07/28/18 mg-caffeine 40 mg-codeine 30 mg cap promethazine 6.25 mg-codeine 10 5 ml PO Q6H PRN #118 ml 07/28/18 mg/5 mL syrup ipratropium-albuterol 3 ml IH QID #90 ml 08/02/18 prednisone 20 mg PO DAILY #7 tab 08/10/18 Allergies Allergy/AdvReac Type Severity Reaction Status Date / Time latex AdvReac Mild ITCHING,DRY Unverified 08/10/18 10:04 SKIN General Stated Complaint: RespSymp JACY: 3 Review of Systems Constitutional Denies chills, Reports fatigue, Denies fever(s), Denies headache(s) and Reports malaise ENT Denies otalgia, Denies headache(s), Denies nasal congestion, Denies nasal discharge, Denies sinus pain, Denies sinus pressure and Denies sore throat Cardiovascular Denies chest pain, Denies chest pain at rest, Denies irregular heart rhythm, Reports dyspnea and Reports dyspnea on exertion Respiratory Reports as per HPI, Reports cough, Reports dyspnea, Reports dyspnea on exertion and Reports wheezing Gastrointestinal Denies abdominal pain, Denies diarrhea, Denies nausea and Denies vomiting Neurologic Denies headache(s) Endocrine Reports fatigue Allergic/Immunologic Reports wheezing PFSH Family History Grandfather Essential hypertension Heart disease Family history of colon cancer Grandmother Essential hypertension Diabetes Heart disease aunt Diabetes Mother No problems noted. Father Essential hypertension Alcohol abuse Hyperlipidemia Sister Mental disorder Asthma Brother No problems noted. Grandfather Heart disease Grandmother No problems noted. Medical History Gestational diabetes mellitus (Resolved) Asthma (Chronic) Social History Smoking/Tobacco Use Status: Former Tobacco Use Surgical History Ligation of fallopian tube (02/16/16) Exam Const General: cooperative, no acute distress and not ill appearing Orientation: alert, awake and oriented x3 HENMT Mouth: moist mucous membranes Resp Effort & Inspection: normal respiratory effort, able to speak in complete sentences and no respiratory distress Auscultation: diminished lung sounds bilaterally in the lower lung garcía and wheezes expiratory wheezes and scattered wheezes Cardio Rate: regular rate Rhythm: regular rhythm Heart Sounds: S1 normal and S2 normal Skin General skin exam: no rashes or lesions noted Neuro General: alert, awake, oriented x3, moves all extremities and no focal motor deficits Sensory Exam: no sensory deficits noted Course Vital Signs Temperature 36.4 C L 08/10/18 10:00 Pulse 107 H 08/10/18 10:00 Respiratory Rate 20 08/10/18 10:00 Blood Pressure 122/74 08/10/18 10:00 Pulse Oximetry 96 08/10/18 10:00 Temperature 36.4 C L 08/10/18 10:00 Temperature Source Skin 08/10/18 10:00 Pulse 107 H 08/10/18 10:00 Respiratory Rate 20 08/10/18 10:00 Respiratory Effort Non-Labored 08/10/18 11:11 Respiratory Depth Normal 08/10/18 11:11 Blood Pressure 122/74 08/10/18 10:00 Blood Pressure Position Sitting 08/10/18 10:00 Pulse Oximetry 96 08/10/18 10:00 Oxygen Delivery Method Room Air 08/10/18 12:45 Oxygen Flow Rate 0 08/10/18 12:45 Pain Level 0 08/10/18 10:00
[2018-08-10 13:15] VITALS: RESP 4
== END 2018-08-10 13:12 | disposition home or self-care (01) ==
PROVIDERS: Emergency Provider Nurse Practitioner Family; PCP Family Medicine
DX: J45.901 Unspecified asthma with (acute) exacerbation (principal); Z87.891 Personal history of nicotine dependence
CPT/HCPCS: 94640; 99283; 71046; J7512; J7620

== ENCOUNTER 2019-12-09 08:19 | Outpatient (REF) | payer MEDICAID, SELFPAY ==
[2019-12-09 12:29] LABS: HCT 40.8 % (36.0-46.0); HGB 13.5 g/dL (12.0-15.5); Mean Corp. HGB Concentration 33.1 g/dL (32.0-36.0); Mean Corpuscular Hemoglobin 28.7 pg (27.0-33.0); Mean Corpuscular Volume 86.6 fL (80-95); Mean Platelet Volume 11.1 fL (8.0-11.0); Platelet Count 336 x1000/uL (130-400); RBC 4.71 m/cumm (4.00-5.20); RBC Distribution Width 13.7 % (11.7-14.6); White Blood Cell Count 8.26 k/cumm (4.4-10.8)
[2019-12-09 13:04] LABS: Calculated LDL 129 mg/dL (<100); Cholesterol 207 mg/dL (<200); HDL Cholesterol 39 mg/dL (40-60); TSH (W/Ref FT4) 3.58 uIU/mL (0.36-3.74); Triglyceride 197 mg/dL (<150)
[2019-12-10 10:14] LABS: Hepatitis C Ab w Rflx HCV PCR Negative (Negative)
[2019-12-10 10:15] LABS: HBs Antibody, Quant 183.4 mIU/mL (See Note); Hepatitis B Surface Ab Positive (See Note)
[2019-12-10 11:32] LABS: HIV-1/2 Ag & Ab Screen Negative (Negative)
[2019-12-10 11:33] LABS: Hepatitis B Surface Ag Negative (Negative)
[2019-12-10 12:34] LABS: Lyme Ab w Rflx to Lyme Confirm Negative (Negative)
[2019-12-14 17:22] LABS: Anaplasma phagocytophilum Negative (Negative); B. miyamotoi PCR Negative (Negative); Babesia divergens/MO-1 Negative (Negative); Babesia duncani Negative (Negative); Babesia microti Negative (Negative); Ehrlichia chaffeensis Negative (Negative); Ehrlichia ewingii/canis Negative (Negative); Ehrlichia muris eauclairensis Negative (Negative)
== END 2019-12-09 08:39 ==
LOC: NCHCN 08:19
PROVIDERS: Visit Provider Nurse Practitioner Family
DX: Z00.00 Encounter for general adult medical examination without abnormal findings (principal); R53.83 Other fatigue; F32.1 Major depressive disorder, single episode, moderate; Z86.32 Personal history of gestational diabetes; Z20.2 Contact with and (suspected) exposure to infections with a predominantly sexual mode of transmission; Z11.59 Encounter for screening for other viral diseases; Z11.4 Encounter for screening for human immunodeficiency virus [HIV]
CPT/HCPCS: 80061; 85027; 86706; 86803; 87340; 87389; 87798; 84443; 86618

== ENCOUNTER 2020-04-07 09:49 | Outpatient (CLI) | payer MEDICAID, SELFPAY ==
--- NOTE | 2020-04-07 | DI.US_ITS ---
EXAM: US LOWER EXTREMITY VENOUS RT CLINICAL HISTORY: FOOT PAIN RT, SWELLING IN ARCH OF RT FOOT, ? SUPERFICIAL THROMBOSIS. TECHNIQUE: Lower extremity venous ultrasound performed using grayscale, color-flow, and spectral Do ppler analysis. COMPARISON: No exams were available for comparison FINDINGS: The common femoral, femoral and popliteal veins demonstrate normal compressibility, augmentation, and color Doppler. The posterior tibial veins are patent. No saphenous vein thrombosis or other superfi cial venous thrombosis is seen. No hematoma or Sims's cyst is seen. No abnormality is visible at t he area of localized pain and swelling on the foot. IMPRESSION: Negative lower extremity ultrasound. No evidence of DVT. DATA REPOSITORY:
== END 2020-04-07 10:09 ==
PROVIDERS: PCP Nurse Practitioner Family; Visit Provider Nurse Practitioner Family
DX: M79.671 Pain in right foot (principal); R22.41 Localized swelling, mass and lump, right lower limb
CPT/HCPCS: 93971

== ENCOUNTER 2020-09-15 03:53 | Outpatient (CLI) | payer MEDICAID, OTHER, SELFPAY ==
--- NOTE | 2020-09-15 15:25 | DI.MRI_ITS ---
EXAM: MR LUMBAR SPINE WO CLINICAL HISTORY: LT LUMBAR RADICULOPATHY,M54.16. TECHNIQUE: Multiplanar multisequence MRI of the Lumbar spine was performed. COMPARISON: MR MRI - LUMBAR SPINE WO CONTRAST from 07/18/2017 FINDINGS: Bones: The last intervertebral disc space is designated the L5/S1 level for the numbering purpose of this examination. The vertebral body heights are well maintained. Alignment is satisfactory. The si gnal characteristics are unremarkable. Cord: The conus tip ends at the L1 level. It is of normal size and signal intensity. T12-L1: No disc herniations or bulges are present. No central spinal canal or neural foraminal stenos is. L1-2: No disc herniations or bulges are present. No central spinal canal or neural foraminal stenosis . L2-3: No disc herniations or bulges are present. No central spinal canal or neural foraminal stenosis . L3-4: No disc herniations or bulges are present. No central spinal canal or neural foraminal stenosis . L4-5: There is again seen a diffuse disc bulge. It appears slightly larger compared to the prior exa mination. It does appear to impinge upon both the right and left L5 nerve root. Mild central spinal canal narrowing is noted.No significant neural foraminal stenosis. L5-S1: There is again seen a disc herniation. It appears slightly larger on the current examination. Now it appears to impinge upon both the right and left S1 nerve root. Mild narrowing of the centra l spinal canal is noted.No significant neural foraminal stenosis. Soft tissues: The visualized SI joints and sacrum are well maintained. The paraspinal soft tissues ar e unremarkable. IMPRESSION: 1. Slight increased size of the L4-L5 disc bulge which now pinches upon both the right and left L5 ne rve root. 2. Slightly larger disc herniation at L5-S1 which now pair stoop edge upon both the right and left S1 nerve roots. 3. There is mild narrowing of the central spinal canal at both L4-5 and L5-S1. DATA REPOSITORY:
== END 2020-09-15 04:13 ==
PROVIDERS: PCP Nurse Practitioner Family; Visit Provider Nurse Practitioner Family
DX: M51.26 Other intervertebral disc displacement, lumbar region (principal); M51.27 Other intervertebral disc displacement, lumbosacral region; M48.061 Spinal stenosis, lumbar region without neurogenic claudication; M54.16 Radiculopathy, lumbar region
CPT/HCPCS: 72148

== ENCOUNTER 2020-12-01 19:25 | Outpatient (REF) | payer MEDICAID, SELFPAY ==
[2020-12-01 16:25] LABS: Abs Immature Grans 0.03 10^3/uL (0.0-0.06); Absolute Basophil Count 0.05 10^3/uL (0.0-0.2); Absolute Eosinophil Count 0.09 10^3/uL (0.0-0.7); Absolute Lymphocyte Count 2.51 10^3/uL (1.2-3.4); Absolute Monocyte Count 0.62 10^3/uL (0.1-0.8); Basophils % 0.5; HCT 40.5 % (36.0-46.0); HGB 13.3 g/dL (11.2-15.7); Immature Grans % 0.3; MCH 27.8 pg (27.0-33.0); MCHC 32.8 % (32.0-36.0); MCV 84.6 fL (80-95); MPV 11.4 fL (8.0-11.0); Monocytes % 6.7; Neutrophils % 64.5; Nucleated RBC 0 %; Platelet Count 323 10^3/uL (130-400); RBC 4.79 10^6/uL (3.93-5.22); RDW 13.2 % (11.7-14.6); RDW-SD 40.8 fL
[2020-12-01 16:59] LABS: ALT 25 U/L (14-59); AST 18 U/L (15-37); Albumin 3.7 g/dL (3.4-5.0); Alkaline Phosphatase 100 U/L (46-116); BUN 11 mg/dL (7-18); Bilirubin, Total 0.3 mg/dL (0.2-1.0); CREATININE 0.6 mg/dL (0.55-1.02); Calcium 9.1 mg/dL (8.5-10.1); Chloride 105 mmol/L (98-107); Glucose 96 mg/dL (74-106); Potassium 4.2 mmol/L (3.5-5.1); Sodium 141 mmol/L (136-145); TSH (W/Ref FT4) 1.33 uIU/mL (0.36-3.74); Total Protein 7.3 g/dL (6.4-8.2)
[2020-12-01 17:07] LABS: C-Reactive Protein 1.42 mg/dL (0.0-0.3)
[2020-12-01 19:10] LABS: ESR 60 mm/hr (<or=20)
[2020-12-04 06:00] LABS: Vitamin D 25 Total 22.3 ng/ml (30-100)
== END 2020-12-01 19:26 | disposition home or self-care (01) ==
LOC: NCHCN 19:25
PROVIDERS: PCP Nurse Practitioner Family; Visit Provider Nurse Practitioner Family
DX: R53.83 Other fatigue (principal); Z86.32 Personal history of gestational diabetes; W55.03XA Scratched by cat, initial encounter; T14.8XXA Other injury of unspecified body region, initial encounter
CPT/HCPCS: 80053; 82306; 85652; 84443; 85025; 86140

== ENCOUNTER 2020-12-07 14:53 | Outpatient (REF) | payer MEDICAID, SELFPAY ==
[2020-12-07 21:05] LABS: Rheumatoid Factor <8.6 IU/mL (<12.0)
[2020-12-08 16:20] LABS: ANA Interpretation Negative (Negative)
[2020-12-10 08:16] LABS: Bartonella Henselae IgG <1:128 titer (<1:128); Bartonella Henselae IgM <1:20 titer (<1:20); Bartonella Quintana IgG <1:128 titer (<1:128); Bartonella Quintana IgM <1:20 titer (<1:20)
== END 2020-12-07 14:54 | disposition home or self-care (01) ==
LOC: NCHCN 14:53
PROVIDERS: PCP Nurse Practitioner Family; Visit Provider Nurse Practitioner Family
DX: W55.03XA Scratched by cat, initial encounter (principal); T14.8XXA Other injury of unspecified body region, initial encounter
CPT/HCPCS: 85652; 86038; 86431; 86611

== ENCOUNTER 2021-01-10 09:40 | Outpatient (CLI) | payer MEDICAID, SELFPAY ==
--- NOTE | 2021-01-10 | DI.RAD_ITS ---
EXAM: XR KNEE LT 3V AP,LAT,ACOSTA CLINICAL HISTORY: LT KNEE PAIN M25.562. TECHNIQUE: 2D digital imaging was performed. COMPARISON: CR LEFT FOOT COMPLETE from 07/15/2016 FINDINGS: There is no evidence of fracture or obvious joint effusion. Minimal narrowing of the medial compartm ent noted. No osteophytes. Bone density normal. No osseous lesions. IMPRESSION: No significant radiographic findings. DATA REPOSITORY: RADIATION DOSE DELIVERED:
--- NOTE | 2021-01-10 16:51 | DI.VRAD_ITS ---
PROCEDURE INFORMATION: Exam: XR Left Knee Exam date and time: 01/10/2021 4:10 PM Age: 35 years old Clinical indication: Pain; Knee; Left TECHNIQUE: Imaging protocol: XR Left knee. Views: 3 views. COMPARISON: No relevant prior studies available. FINDINGS: Bones/joints: Mild nonspecific narrowing of the medial joint space. No acute fracture. No dislocation. Soft tissues: Unremarkable. IMPRESSION: 1. No acute fracture or dislocation. 2. Mild nonspecific narrowing of the medial joint space. Dictated and Authenticated by: Derrek Ma MD. Ordering:DAYDAY Alston MD
== END 2021-01-10 10:00 ==
PROVIDERS: PCP Nurse Practitioner Family; Visit Provider Physician Assistant Medical
DX: M25.562 Pain in left knee (principal)
CPT/HCPCS: 73562

== ENCOUNTER → 2021-04-19 01:37 | Outpatient (CLI) | payer OTHER, MEDICAID, SELFPAY ==
--- NOTE | 2021-04-19 | DI.RAD_ITS ---
Exam(s) XR CERVICAL SPINE COMP 4-5V EXAM: XR CERVICAL SPINE COMP 4-5V CLINICAL HISTORY: NECK PAIN, M54.2. TECHNIQUE: 2D digital imaging was performed. COMPARISON: No exams were available for comparison FINDINGS: Is no evidence of fracture, listhesis, nor offset of the spinal laminar line. All the disc spaces ex hibit normal height although there is slight anterior osseous lipping at C3-4 level. Facet joints ap pear unremarkable. On the oblique views there is small left-sided Luschka joint osteophytes at C5-6 level noted. Bone density is normal. No osseous lesions and there are no cervical ribs IMPRESSION: Mild plain film findings at C3-4 and C5-6 levels as described above. Please note that today's MRI scan revealed disc herniations at C5-6 and C6-7 levels. No disc herniat ion at C3-4 level. DATA REPOSITORY: RADIATION DOSE DELIVERED:
--- NOTE | 2021-04-19 15:15 | DI.MRI_ITS ---
Exam(s) MR CERVICAL SPINE WO EXAM: MR CERVICAL SPINE WO CLINICAL HISTORY: NECK PAIN, M54.2,LT SIDED RADIATING INTO LT EAR,H/O LUMBAR HERNIATED DISCS TECHNIQUE: Multiplanar multisequence MRI of the cervical spine was performed without intravenous con trast. COMPARISON: CR XR CERVICAL SPINE COMP 4-5V from 04/19/2021 CR XR CERVICAL SPINE COMP 4-5V from 04/19/2021 FINDINGS: CERVICOMEDULLARY JUNCTION: Intact with no evidence of cerebellar tonsillar ectopia. No obvious abnor mality of the odontoid process. No evidence of Chiari 1 malformation. CERVICAL SPINAL CORD: There is no abnormal signal in the cervical spinal cord and no evidence of foca l cord atrophy nor focal cord swelling. OSSEOUS:There are no cervical fractures evident. No significant osseous lesions in the cervical vert ebrae. There is straightening of the cervical curvature, probably related to muscle spasm INDIVIDUAL LEVELS: C2-3: No disc herniation nor central canal stenosis. No foraminal stenosis. No facet arthropathy. C3-4: No disc herniation nor central canal stenosis.No facet arthropathy. No foraminal stenosis. C4-5: No disc herniation nor central canal stenosis.No facet arthropathy. No foraminal stenosis C5-6: Normal disc height and signal. However at this level there is central and left paracentral dis c herniation and small left-sided Luschka joint osteophytes. The central disc protrusion indents the thecal sac and anterior aspect of the spinal cord. AP measurement of the canal at this level is 7 m illimeters. No abnormal signal in the cord. There is no significant foraminal stenosis on either si de. C6-7: Normal disc height and signal. However at this level there is a posterolateral left disc herni ation which extends posteriorly 2 millimeters and is approximately 7 millimeters wide, in the lateral recess but not appearing to extend appreciably into the left lateral recess. Central canal dimensio ns are within normal limits. No foraminal narrowing on either side. Left facet arthropathy. Right facet unremarkable. C7-T1: No disc herniation nor central canal stenosis. No facet arthropathy.No foraminal stenosis. IMPRESSION: 1. There are disc herniations at C5-6 and C6-7 levels as described above. DATA REPOSITORY:
== END ==
PROVIDERS: PCP Nurse Practitioner Family; Visit Provider Family Medicine
DX: M50.222 Other cervical disc displacement at C5-C6 level (principal); M25.78 Osteophyte, vertebrae
CPT/HCPCS: 72050; 72141

== ENCOUNTER 2021-05-20 15:03 | Emergency (ER) | payer OTHER, MEDICAID, SELFPAY ==
[2021-05-20 15:16] VITALS: BP 110/79; PULSE 112; RESP 16; TEMP 36.7; O2SAT 97
--- NOTE | 2021-05-20 15:18 | ED.GENADUL_ITS ---
Discharge Plan Disposition Patient Disposition: HOME Condition: Good Discharge Details Clinical Impression: Acute foot pain Primary Care Provider: Tomas Bean ED Provider: Adelaide Christensen Home Meds and New Rx's Prescriptions: Continued Flovent HFA 110 mcg/actuation HFA aerosol inhaler 2 puff IH BID Qty: 12 RF: 2 fluconazole [Diflucan] 150 mg tablet 150 mg PO ONCE Qty: 1 RF: 0 [id number] mg capsule 2 cap PO Q4H PRN (Reason: pain) Qty: 90 RF: 2 ibuprofen 200 MG capsule 800 mg PO Q6H PRN RF: 0 gabapentin 300 MG capsule 2 cap PO BID MDD 1500 Qty: 360 RF: 6 ranitidine HCl 150 MG capsule 150 mg PO BID Qty: 180 RF: 3 ipratropium-albuterol 0.5 mg-3 mg(2.5 mg base)/3 mL solution for nebulization 3 ml IH QID Qty: 90 RF: 4 acetaminophen [Tylenol] 325 MG tablet 650 mg PO Q4H PRN PRNRF: 0 Discharge Instructions Instructions: Arthralgia (ED) Additional Instructions: Exam and imaging are reassuring today. No evidence of fracture or dislocation. Suspect this is an overuse injury. Please encourage rest, ice, elevation. Tylenol and/or Ibuprofen as needed for discomfort. Please continue with postoperative shoe and crutches as needed for discomfort. If you develop new/worsening symptoms please seek care urgently once again. Otherwise, please follow up with primary care in 1-2 weeks for reevaluation. Referrals: Clementine Lawrence MD [ [facility] ST[facility]FF PHYSICIAN] - Medical Decision Making Patient is a pleasant 85-year-old female presents due to complaint of left foot pain. She reports that the pain began approximate 5 days ago. States that leading up to this, she has been walking much more than typical and often has [place] the beach while barefoot. She states that when at the time the pain began, she did need to cut back to some degree on her frequent walking. To that she also has had swelling over the area of discomfort. Indicates the lateral aspect, primarily over the fifth metatarsal area of discomfort. No break in the skin. No known trauma. Denies any numbness or tingling. No radiation of pain. On exam, patient appears nontoxic. She does have pain over the fifth metatarsal. No palpable deformity. No appreciable swelling or discoloration. 2+ distal pulses, intact capillary refill. Sensation is intact. FINDINGS: Bones/joints: No evidence for a fracture or other osseous lesion. Alignment is anatomic. The joint spaces are maintained. Soft tissues: Unremarkable. IMPRESSION: Unremarkable radiographic study. No fracture identified. Discussed the findings with the patient. Advised this likely an overuse injury. Encouraged rest, ice, elevation. Tylenol and ibuprofen for discomfort. As she has has discomfort with ambulation and weightbearing, will place her in a postop shoe and give crutches. Encourage follow-up with primary care in the next 1 to 2 weeks for reevaluation. Return precautions were discussed. All her questions and concerns were addressed and she is in agreement with this plan. HPI General Mode of arrival: ambulatory . Date/Time Provider Initiated Documentation: 05/20/21 15:18 . Limitations to Documentation: no limitations . Information obtained by: patient and RN notes reviewed . History of Present Illness 35 year old F presents to the emergency department with the chief complaint of left foot pain, described as moderate, with intensity rated at 6. Quality is described as aching, and is localized to the left. Patient reports no radiation. Patient started experiencing this day(s) (5) and it has been constant. Immobilization improves symptom(s), Movement worsens symptoms . Patient notes no other symptoms.. Patient did receive the following treatments prior to arrival, none Related Data Home Medications Medication Instructions Recorded Confirmed acetaminophen [Tylenol] 650 mg PO Q4H PRN PRN tab 02/17/16 05/20/21 ibuprofen 800 mg PO Q6H PRN tab-cap 08/19/17 05/20/21 gabapentin 2 cap PO BID #360 tab-cap MDD 1500 10/21/17 05/20/21 ranitidine HCl 150 mg PO BID #180 tab-cap 01/02/18 05/20/21 butalbital 50 mg-acetaminophen 325 2 cap PO Q4H PRN #90 cap 07/28/18 05/20/21 mg-caffeine 40 mg-codeine 30 mg cap ipratropium 0.5 mg-albuterol 3 mg 3 ml IH QID #90 ml 08/24/18 05/20/21 (2.5 mg base)/3 mL nebulization soln fluconazole 150 mg tablet 150 mg PO ONCE #1 tab 09/01/18 05/20/21 fluticasone propionate 110 2 puff IH BID #12 gm 09/01/18 05/20/21 mcg/actuation HFA aerosol inhaler Previous Rx's Medication Instructions Recorded acetaminophen [Tylenol] 650 mg PO Q4H PRN PRN tab 02/17/16 gabapentin 2 cap PO BID #360 tab-cap MDD 1500 10/21/17 ranitidine HCl 150 mg PO BID #180 tab-cap 01/02/18 butalbital 50 mg-acetaminophen 325 2 cap PO Q4H PRN #90 cap 07/28/18 mg-caffeine 40 mg-codeine 30 mg cap ipratropium 0.5 mg-albuterol 3 mg 3 ml IH QID #90 ml 08/24/18 (2.5 mg base)/3 mL nebulization soln fluconazole 150 mg tablet 150 mg PO ONCE #1 tab 09/01/18 fluticasone propionate 110 2 puff IH BID #12 gm 09/01/18 mcg/actuation HFA aerosol inhaler Allergies Allergy/AdvReac Type Severity Reaction Status Date / Time latex AdvReac Mild ITCHING,DRY Unverified 05/20/21 15:20 SKIN General JACY: 3 Review of Systems Constitutional Constitutional: Reports as per HPI, Denies chills, Denies fever(s), Denies headache(s) and Denies weakness ENT Ears, Nose, Mouth, and Throat: Denies headache(s) Cardiovascular Cardiovascular: Reports as per HPI Respiratory Respiratory: Reports as per HPI and Denies cough Musculoskeletal Musculoskeletal: Reports as per HPI and Denies tingling Integumentary/Breasts Skin/Breast: Reports as per HPI, Denies rash and Denies wounds Neurologic Neurologic: Reports as per HPI, Denies headache(s), Denies tingling, Denies paresthesias and Denies weakness [facility] Medical History (Updated 05/20/21 @ 16:33 by ELIZABETH Jensen) Asthma Gestational diabetes mellitus Surgical History Ligation of fallopian tube (02/16/16) PPTL. [facility] Family History Grandfather Essential hypertension Heart disease Family history of colon cancer Grandmother Essential hypertension Diabetes Heart disease aunt Diabetes Mother No problems noted. Father Essential hypertension Alcohol abuse Hyperlipidemia Sister Mental disorder Asthma Brother No problems noted. Grandfather Heart disease Grandmother No problems noted. Social History Smoking/Tobacco Use Status: Former Tobacco Use Smoking risk assessment performed?: Yes Alcohol Intake: never Drug use: Never Substance use type: does not use Do you feel safe in your relationship?: Yes Exam Const General: cooperative, healthy appearing, comfortable, no acute distress, well d eveloped and well groomed Nutritional Appearance: average body habitus and well nourished Orientation: alert and awake Resp Effort & Inspection: normal respiratory effort, able to speak in complete sente nces and no respiratory distress Cardio Rate: regular rate Rhythm: regular rhythm Skin General skin exam: no rashes or lesions noted Lesions: no lesions Rashes: no rashes Trauma: no lacerations or abrasions Neuro General: patient alert and patient awake Cognition: normal cognition Speech: speech normal Gait: normal gait Motor: muscle tone normal throughout Sensory Exam: no sensory deficits noted Extrem Ankle/foot/toe images: 1. Area of discomfort. No swelling, ecchymosis, deformity. Patient has pain maximally over the proximal fifth metatarsal. Does have some pain medial to his. Sensation is intact. Full range of motion of the toes and ankle. Brisk capillary refill. 2+ distal pulses. No pain at the calcaneus. Achilles intact. Psych Appearance: grossly normal and well kempt Mental Status: mental status grossly normal Speech and Movement: speech and movement normal
--- NOTE | 2021-05-20 15:30 | DI.RAD_ITS ---
Exam(s) XR FOOT LT COMPLETE EXAM: XR FOOT LT COMPLETE CLINICAL HISTORY: lateral pain. TECHNIQUE: 2D digital imaging was performed. COMPARISON: No exams were available for comparison FINDINGS: No evidence of fracture or diastasis of the Lisfranc joint. No radiopaque foreign body. No osseous lesions. Bone density normal. IMPRESSION: DATA REPOSITORY: RADIATION DOSE DELIVERED:
--- NOTE | 2021-05-20 16:18 | DI.VRAD_ITS ---
PROCEDURE INFORMATION: Exam: XR Left Foot Exam date and time: 05/20/2021 3:44 PM Age: 35 years old Clinical indication: Injury or trauma; Other: Pain lateral left foot; Sprain or strain TECHNIQUE: Imaging protocol: XR Left foot. Views: 3 or more views. COMPARISON: No relevant prior studies available. FINDINGS: Bones/joints: No evidence for a fracture or other osseous lesion. Alignment is anatomic. The joint spaces are maintained. Soft tissues: Unremarkable. IMPRESSION: Unremarkable radiographic study. No fracture identified. Dictated and Authenticated by: William Lopez MD. Ordering:CHANDA Bryson MD
== END 2021-05-20 16:45 | disposition home or self-care (01) ==
PROVIDERS: Emergency Provider Physician Assistant; PCP Nurse Practitioner Family
DX: M79.672 Pain in left foot (principal)
CPT/HCPCS: 99283; 73630

== ENCOUNTER 2021-07-31 16:30 | Outpatient (REF) | payer OTHER, MEDICAID, SELFPAY ==
[2021-08-02 15:01] LABS: COVID-19 RT-PCR UVMMC Result Negative (Negative)
== END 2021-07-31 16:31 | disposition home or self-care (01) ==
LOC: LBN 16:30
PROVIDERS: PCP Nurse Practitioner Family; Visit Provider Family Medicine
DX: Z20.822 Contact with and (suspected) exposure to COVID-19 (principal); J06.9 Acute upper respiratory infection, unspecified
CPT/HCPCS: U0003

== ENCOUNTER 2021-09-03 18:12 | Outpatient (REF) | payer OTHER, MEDICAID, SELFPAY ==
--- NOTE | 2021-09-03 15:45 | PAPFT_PTH ---
PATIENT: Jovanna Butler LOC: [facility] U#:[id number] AGE/SX: 35/F ROOM: RE09/03/[address]: Sol Lama NP : [id number] BED: DIS: 09/03/2021 SPEC #: [id number] RECD: 09/03/21 18:42 STATUS: VERONA REBobbi #: [id number] RAYO: 09/03/21 15:[address]: Daina HANNA,Sol DEPT: [facility] Cytology RECD BY: Danielle Decker ENTERED: 09/03/21 18:42 SP TYPE: PAPFT OTHR DR: Tomas Bean Tissues: 1 - CX/ENDOCX FOR PAP SMEARS Procedures: PAP THIN PREP/UVM Screening HPV DNA PROBE Comments: [id number]
== END 2021-09-03 18:13 | disposition home or self-care (01) ==
LOC: LBN 18:12
PROVIDERS: PCP Nurse Practitioner Family; Visit Provider Nurse Practitioner Women's Health
DX: Z12.4 Encounter for screening for malignant neoplasm of cervix (principal); Z11.51 Encounter for screening for human papillomavirus (HPV)
CPT/HCPCS: 88142; 87624

== ENCOUNTER → 2021-12-04 13:48 | Outpatient (BNVA) | payer OTHER, MEDICAID, SELFPAY | PROVIDERS: PCP Nurse Practitioner Family; Referring Provider Family Medicine; Visit Provider Nurse Practitioner Adult Health | DX: G56.03 Carpal tunnel syndrome, bilateral upper limbs (principal) | CPT/HCPCS: 95910; 99203; 99214 ==

== ENCOUNTER 2022-04-26 18:19 | Outpatient (REF) | payer OTHER, MEDICAID, SELFPAY ==
[2022-04-26 18:16] LABS: Hemoglobin A1C 5.8 % (<5.7)
[2022-04-26 18:19] LABS: Anion Gap 7.8 mmol/L (3-11); BUN 11 mg/dL (7-18); CO2 26.2 mmol/L (21.0-32.0); CREATININE 0.8 mg/dL (0.55-1.02); Calcium 9.5 mg/dL (8.5-10.1); Chloride 104 mmol/L (98-107); FREE T4 0.84 ng/dL (0.76-1.46); Glucose 119 mg/dL (74-106); Potassium 4.4 mmol/L (3.5-5.1); Sodium 138 mmol/L (136-145)
[2022-04-28 18:06] LABS: T3, Total 147 ng/dL (97-169)
== END 2022-04-26 18:20 | disposition home or self-care (01) ==
LOC: NCHCN 18:19
PROVIDERS: PCP Nurse Practitioner Family; Visit Provider Family Medicine
DX: R00.2 Palpitations (principal); Z86.32 Personal history of gestational diabetes
CPT/HCPCS: 80048; 83036; 84439; 84443; 84480

== ENCOUNTER 2022-05-13 02:51 | Outpatient (CLI) | payer OTHER, MEDICAID, SELFPAY ==
--- NOTE | 2022-06-27 09:31 | W.CARDEVENT ---
Date of service: 06/27/22 Time of Service: 09:31 Cardiac Event Recorder Referring Provider:: Clementine Lawrence Indications:: Palpitations Cardiac Event Note: This is a 30-day event monitor ordered for palpitations. Patient was monitored from May 14 through June 11, 2022 Rhythm throughout was sinus with an average heart rate of 96 No significant atrial and ventricular dysrhythmias were seen. There was no atrial fibrillation, no high-grade AV block, no pauses. 3 seconds. There was no SVT Patient symptoms corresponded to sinus rhythm and sinus tachycardia, rates ranging from 91-125
== END 2022-05-13 02:52 | disposition home or self-care (01) ==
LOC: RT 02:51
PROVIDERS: PCP Nurse Practitioner Family; Visit Provider Family Medicine
DX: R00.2 Palpitations (principal); R00.0 Tachycardia, unspecified
CPT/HCPCS: 93270

== ENCOUNTER 2022-06-27 09:28 | Outpatient (CLI) | payer OTHER, MEDICAID, SELFPAY | END 2022-06-27 09:29 | LOC: CARDO 07-15 10:26 | PROVIDERS: Referring Provider Family Medicine; Visit Provider Internal Medicine Cardiovascular Disease | DX: R00.2 Palpitations (principal); R00.0 Tachycardia, unspecified | CPT/HCPCS: 93272 ==

== ENCOUNTER 2022-07-19 17:19 | Emergency (ER) | payer OTHER, MEDICAID, SELFPAY ==
--- NOTE | 2022-07-19 17:15 | DI.RAD_ITS ---
Exam(s) XR FOOT RT COMPLETE EXAM: XR FOOT RT COMPLETE CLINICAL HISTORY: PAIN. TECHNIQUE: 2D digital imaging was performed. COMPARISON: CR,XR XR FOOT LT COMPLETE from 05/20/2021 FINDINGS: 3 views There is no evidence of fracture or diastasis of the Lisfranc joint. No joint space narrowing. No d egenerative changes nor erosions. No radiopaque foreign body. Osseous lesions. IMPRESSION: No significant osseous findings. DATA REPOSITORY: RADIATION DOSE DELIVERED:
[2022-07-19 17:43] VITALS: BP 115/76; PULSE 88; RESP 20; TEMP 36.8; O2SAT 96
--- NOTE | 2022-07-19 18:09 | DI.VRAD_ITS ---
PROCEDURE INFORMATION: Exam: XR Right Foot Exam date and time: 07/19/2022 5:49 PM Age: 36 years old Clinical indication: Pain; Foot; Right TECHNIQUE: Imaging protocol: Radiologic exam of the Right foot. Views: 3 or more views. COMPARISON: US LOWER EXTREMITY VENOUS RT 04/07/2020 3:19 PM FINDINGS: Bones/joints: No acute fracture. No joint dislocation. There is a bipartite sesamoid bone at the head of the 1st metatarsal bone. [place] also noted inferior to the 1st interphalangeal joint and at the head of the 2nd and 5th metatarsal bones. No significant degenerative changes. Soft tissues: Normal. IMPRESSION: 1. No acute fracture or dislocation. 2. No significant degenerative changes. Dictated and Authenticated by: Yue Polanco MD. Ordering:GENOVEVA Santos MD
--- NOTE | 2022-07-19 18:57 | ED.GENADUL_ITS ---
Discharge Plan Disposition Patient Disposition: HOME Condition: Stable Discharge Details Clinical Impression: Contusion of foot Primary Care Provider: Unknown,Unknown ED Provider: Danielle Ulloa Home Meds and New Rx's Prescriptions: Continued fluticasone propionate [Flovent HFA] 110 mcg/actuation HFA aerosol inhaler 2 puff IH BID Qty: 12 2RF Rx Instructions: with spacer ibuprofen 200 MG capsule 800 mg PO Q6H PRN gabapentin 300 MG capsule 2 cap PO BID MDD 1500 Qty: 360 6RF sertraline 100 mg tablet 100 mg PO DAILY cyclobenzaprine 10 mg tablet 10 mg PO HS cetirizine-pseudoephedrine [Zyrtec-D] 5-120 mg tablet extended release 12 hr 1 tab PO Q12H famotidine 40 mg tablet 40 mg PO BID montelukast 10 mg tablet 10 mg PO DAILY albuterol sulfate [ProAir HFA] 90 mcg/actuation HFA aerosol inhaler 2 puff inhalation Q6H PRN acetaminophen [Tylenol] 325 MG tablet 650 mg PO Q4H PRN [id number] Discharge Instructions Instructions: Foot Contusion (ED) Additional Instructions: Ice, ibuprofen, rest, elevate Repeat x-ray in 1 week with persistent symptoms Return earlier should he have new or worsening complaints Discharge Data Discharge Date/Time-TO BE ENTERED AT DEPARTURE: 07/19/22 19:04 Medical Decision Making X-ray does not show evidence of acute abnormality per radiology interpretation my review Return precautions discussed and patient expressed understanding Medical Records Medical records reviewed: Yes I reviewed the patient's medical records. HPI General Date/Time Provider Initiated Documentation: 07/19/22 18:57 . HPI Narrative: This 36-year-old female presents with right foot pain after crush injury. This occurred several days ago. Denies any additional injuries. Pain with walking. Pain worse with walking. Denies any additional injuries. Related Data Home Medications Medication Instructions Recorded Confirmed acetaminophen 325 mg tablet 650 mg PO Q4H PRN PRN 02/17/16 07/19/22 (Tylenol) ibuprofen 200 mg capsule 800 mg PO Q6H PRN 08/19/17 07/19/22 gabapentin 300 mg capsule 2 cap PO BID #360 tab-caps 10/21/17 07/19/22 fluticasone propionate 110 2 puff inhalation BID asthma #12 09/01/18 07/19/22 mcg/actuation HFA aerosol inhaler grams (Flovent HFA) albuterol sulfate 90 mcg/actuation 2 puff inhalation Q6H PRN 08/29/21 07/19/22 aerosol inhaler (ProAir HFA) cetirizine 5 mg-pseudoephedrine ER 1 tab PO Q12H 08/29/21 07/19/22 120 mg tablet,extended release,12hr (Zyrtec-D) cyclobenzaprine 10 mg tablet 10 mg PO HS 08/29/21 07/19/22 famotidine 40 mg tablet 40 mg PO BID 08/29/21 07/19/22 montelukast 10 mg tablet 10 mg PO DAILY 08/29/21 07/19/22 sertraline 100 mg tablet 100 mg PO DAILY 08/29/21 07/19/22 Previous Rx's Medication Instructions Recorded acetaminophen 325 mg tablet 650 mg PO Q4H PRN PRN 02/17/16 (Tylenol) gabapentin 300 mg capsule 2 cap PO BID #360 tab-caps 10/21/17 fluticasone propionate 110 2 puff inhalation BID asthma #12 09/01/18 mcg/actuation HFA aerosol inhaler grams (Flovent HFA) Allergies Allergy/AdvReac Type Severity Reaction Status Date / Time latex AdvReac Mild ITCHING,DRY Verified 07/19/22 18:22 SKIN General Stated Complaint: Orthopedic JACY: 4 Review of Systems All systems reviewed & are unremarkable except as noted in HPI and below PFSH All Active Problems (Updated 07/19/22 @ 18:59 by ELIZABETH Soriano) Contusion of foot (Acute) Bilateral carpal tunnel syndrome (Acute) Acute foot pain (Acute) Gastroesophageal reflux disease (Chronic 05/27/12) Fibromyalgia (Chronic 05/23/17) Asthma (Chronic 05/27/12) Medical History Allergic asthma Asthma Carpal tunnel syndrome Depression, major, recurrent, moderate Hx of diabetes mellitus Lumbar radiculopathy Migraine Surgical History Ligation of fallopian tube (02/16/16) PPTL. aoc Family History Grandfather Essential hypertension Heart disease Family history of colon cancer Grandmother Essential hypertension Diabetes Heart disease aunt Diabetes Mother No problems noted. Father Essential hypertension Alcohol abuse Hyperlipidemia Sister Mental disorder Asthma Brother No problems noted. Grandfather Heart disease Grandmother No problems noted. Social History Smoking/Tobacco Use Status: Former Tobacco Use Smoking risk assessment performed?: Yes Alcohol Intake: never Drug use: Never Substance use type: does not use Do you feel safe at home: Yes Do you feel safe in your relationship?: Yes Female Reproductive History Menstrual Duration of menses: 3-5 days control method: permanent sterilization History History 4 Para 4 Hx # Term Pregnancies Multiple births Hx # Pregnancies Ectopic pregnancies AB induced Hx Number of Living Children AB spontaneous Exam Extrem Other: right foot with tenderness neurovascularly intact no ankle tenderness Course Vital Signs Vital signs: Vital Signs Temperature 36.8 C 07/19/22 17:43 Pulse 88 07/19/22 17:43 Respiratory Rate 20 07/19/22 17:43 Blood Pressure 115/76 07/19/22 17:43 Pulse Oximetry 96 07/19/22 17:43 Temperature 36.8 C 07/19/22 17:43 Temperature Source Oral 07/19/22 17:43 Pulse 88 07/19/22 17:43 Respiratory Rate 20 07/19/22 17:43 Respiratory Effort Non-Labored 07/19/22 17:43 Blood Pressure 115/76 07/19/22 17:43 Blood Pressure Position Sitting 07/19/22 17:43 Pulse Oximetry 96 07/19/22 17:43 Oxygen Delivery Method Room Air 07/19/22 17:43 Oxygen Flow Rate 0 07/19/22 17:43
== END 2022-07-19 19:04 | disposition home or self-care (01) ==
PROVIDERS: Emergency Provider Physician Assistant
DX: S90.31XA Contusion of right foot, initial encounter (principal); J45.909 Unspecified asthma, uncomplicated; E11.9 Type 2 diabetes mellitus without complications; Z79.51 Long term (current) use of inhaled steroids; Z87.891 Personal history of nicotine dependence; X58.XXXA Exposure to other specified factors, initial encounter
CPT/HCPCS: 99283; 73630; 99282

== ENCOUNTER 2022-07-29 12:31 | Emergency (ER) | payer OTHER, MEDICAID, SELFPAY ==
[2022-07-29 12:38] VITALS: BP 117/65; PULSE 120; RESP 16; TEMP 35.4; O2SAT 98
--- NOTE | 2022-07-29 13:42 | W.ED.GENAD ---
Discharge Plan Disposition Patient Disposition: HOME Condition: Improving Discharge Details Clinical Impression: Back pain Primary Care Provider: Unknown,Unknown ED Provider: Aedlaide Christensen Home Meds and New Rx's Prescriptions: Continued fluticasone propionate [Flovent HFA] 110 mcg/actuation HFA aerosol inhaler 2 puff IH BID Qty: 12 2RF Rx Instructions: with spacer ibuprofen 200 MG capsule 800 mg PO Q6H PRN sertraline 100 mg tablet 100 mg PO DAILY cyclobenzaprine 10 mg tablet 10 mg PO HS cetirizine-pseudoephedrine [Zyrtec-D] 5-120 mg tablet extended release 12 hr 1 tab PO DAILY montelukast 10 mg tablet 10 mg PO DAILY albuterol sulfate [ProAir HFA] 90 mcg/actuation HFA aerosol inhaler 2 puff inhalation Q6H PRN acetaminophen [Tylenol] 325 MG tablet 650 mg PO Q4H PRN PRN0RF gabapentin 300 MG capsule 2 cap PO DAILY MDD 1500 bupropion HCl 150 mg tablet sustained-release 12 hr 1 tab PO BID Label Comments: TAKE ONE TABLET BY MOUTH TWICE A DAY naltrexone 50 mg tablet 25 mg PO BID Label Comments: TAKE 1/2 TABLET ORALLY TWO TIMES A DAY Discharge Instructions Instructions: Back Pain (ED) Additional Instructions: Please encourage hydration. You may continue with Tylenol and/or ibuprofen as needed for discomfort. Please do not take ibuprofen until 9 PM as you received Toradol here. Steroids been sent to your pharmacy to help with any swelling that may be contributing to his acute on chronic flare of your back pain. I have also sent prescription for methocarbamol. This is another type of muscle relaxant, please do not take this with the Flexeril. Please follow-up with primary care in the next 1 to 2 weeks for reevaluation. If you develop fever/chills, weakness, change in bowel or bladder habits or other new/worsening symptoms to seek care urgently once again. Discharge Data Discharge Date/Time-TO BE ENTERED AT DEPARTURE: 07/29/22 15:55 Medical Decision Making The patient is a pleasant 36-year-old female presenting today with chief complaint of back pain. She reports that she has a long history of back pain stemming from an injury about 10 years ago. Reports chronic lumbar radiculopathy with bulging disc that can often impinge the sciatic nerve, left greater than right. She states that 2 days ago she was feeling a mop bucket when she had a sudden onset of discomfort throughout her back. She also has a history of asthma, GERD, fibromyalgia. She currently takes acetaminophen, cyclobenzaprine, gabapentin, ibuprofen. She has not taken her Tylenol or ibuprofen today. She reports that since the sudden exacerbation of her back pain a few days ago, she has had severe pain that has been primarily nonradiating. Has been limiting her ability to perform her activities of daily living. She denies any trauma. No fevers or chills. No change in bowel or bladder habits. Denies any nausea or vomiting. On exam, patient appears nontoxic. She is tachycardic, likely associated with pain and she does appear quite uncomfortable. She is hunched forward in a more comfortable position. She has 2+ distal pulses. No saddle paresthesias. No midline tenderness. Pain elicited with palpation over the right SI joint. No palpable muscular spasm or pain under the gluteus. She has strength and sensation intact in bilateral lower extremities. Patient reports that she did drive here and would prefer to be able to drive home. Will give Toradol and APAP to help with discomfort. We will also apply Lidoderm patch. Patient feeling signficantly improved after the above intervention. She is stil achy but more mobile and is wantting to go home to take her kids trick or treating. Again, no evidence of cauda equina, recent signficant trauma. Her hx and exam are not suggestive of infection such as epidural abscess, osteomyelitis. This is an acute on chronic exacerbation. Encouragaed mobility. She has used PT in the past, encouraged the exercises previously demonstrated. We discussed pharmacologic interventions. She reports that she has had good results with steroids during times of exaceration, will try to this again. As her flexeril is not working, will try alternative. Adviesed not to take the two muscle relaxers at the same time and not drive while taking that medication. Encouraged close f/u with PCP. Return precatuions discussed. All of her quesitons and concerns were addressed,s he is in agreement with this paln. HPI General Mode of arrival: ambulatory. Date/Time Provider Initiated Documentation: 07/29/22 12:53. Limitations to Documentation: no limitations. Information obtained by: patient and RN notes reviewed. History of Present Illness 36 year old F presents to the emergency department with the chief complaint of low back pain, described as severe and similar to prior episodes, with intensity rated at 8. Quality is described as aching, and is localized to the back. Patient extremity (intermittent radiation into the RLE). Patient started experiencing this day(s) (acute on chronic exacerbation) and it has been constant. Immobilization improves symptom(s), Movement worsens symptoms . Patient notes no other symptoms.. Patient did receive the following treatments prior to arrival, NSAID and other (Flexeril, APAP, marijuana and Gabapentin) Related Data Home Medications Medication Instructions Recorded Confirmed acetaminophen 325 mg tablet 650 mg PO Q4H PRN PRN 02/17/16 07/29/22 (Tylenol) ibuprofen 200 mg capsule 800 mg PO Q6H PRN 08/19/17 07/29/22 fluticasone propionate 110 2 puff inhalation BID asthma #12 09/01/18 07/29/22 mcg/actuation HFA aerosol inhaler grams (Flovent HFA) albuterol sulfate 90 mcg/actuation 2 puff inhalation Q6H PRN 08/29/21 07/29/22 aerosol inhaler (ProAir HFA) cetirizine 5 mg-pseudoephedrine ER 1 tab PO DAILY 08/29/21 07/29/22 120 mg tablet,extended release,12hr (Zyrtec-D) cyclobenzaprine 10 mg tablet 10 mg PO HS 08/29/21 07/29/22 montelukast 10 mg tablet 10 mg PO DAILY 08/29/21 07/29/22 sertraline 100 mg tablet 100 mg PO DAILY 08/29/21 07/29/22 bupropion HCl 150 mg tablet,12 hr 1 tab PO BID 07/29/22 07/29/22 sustained-release gabapentin 300 mg capsule 2 cap PO DAILY 07/29/22 07/29/22 naltrexone 50 mg tablet 25 mg PO BID 07/29/22 07/29/22 Previous Rx's Medication Instructions Recorded acetaminophen 325 mg tablet 650 mg PO Q4H PRN PRN 02/17/16 (Tylenol) fluticasone propionate 110 2 puff inhalation BID asthma #12 09/01/18 mcg/actuation HFA aerosol inhaler grams (Flovent HFA) Allergies Allergy/AdvReac Type Severity Reaction Status Date / Time latex AdvReac Mild ITCHING,DRY Verified 07/29/22 12:42 SKIN General Stated Complaint: Nk/Back Pain JACY: 4 Review of Systems Constitutional Constitutional: Reports as per HPI, Denies chills, Denies fever(s), Denies frequent falls and Denies headache(s) ENT Ears, Nose, Mouth, and Throat: Denies headache(s) Cardiovascular Cardiovascular: Denies chest pain, Denies dyspnea and Denies dyspnea on exertion Respiratory Respiratory: Denies cough, Denies dyspnea and Denies dyspnea on exertion Gastrointestinal Gastrointestinal: Denies abdominal pain, Denies change in bowel habits and Denies fecal incontinence Genitourinary Genitourinary: Reports as per HPI, Denies urinary incontinence and Denies urinary hesitancy Musculoskeletal Musculoskeletal: Reports as per HPI, Reports back pain, Denies muscle weakness, Denies numbness, Reports stiffness and Denies tingling Integumentary/Breasts Skin/Breast: Reports as per HPI and Denies rash Neurologic Neurologic: Reports as per HPI, Denies frequent falls, Denies headache(s), Denies localized weakness, Denies numbness, Denies sensory deficit, Denies tingling and Denies paresthesias PFSH All Active Problems (Updated 07/29/22 @ 14:54 by ELIZABETH Jensen) Contusion of foot (Acute) Back pain (Acute) Bilateral carpal tunnel syndrome (Acute) Acute foot pain (Acute) Gastroesophageal reflux disease (Chronic 05/27/12) Fibromyalgia (Chronic 05/23/17) Asthma (Chronic 05/27/12) Medical History Allergic asthma Asthma Carpal tunnel syndrome Depression, major, recurrent, moderate Hx of diabetes mellitus Lumbar radiculopathy Migraine Surgical History Ligation of fallopian tube (02/16/16) PPTL. [facility] Family History Grandfather Essential hypertension Heart disease Family history of colon cancer Grandmother Essential hypertension Diabetes Heart disease aunt Diabetes Mother No problems noted. Father Essential hypertension Alcohol abuse Hyperlipidemia Sister Mental disorder Asthma Brother No problems noted. Grandfather Heart disease Grandmother No problems noted. Social History Smoking/Tobacco Use Status: Former Tobacco Use Smoking risk assessment performed?: Yes Alcohol Intake: never Drug use: Never Substance use type: does not use Do you feel safe at home: Yes Do you feel safe in your relationship?: Yes Female Reproductive History Menstrual Duration of menses: 3-5 days control method: permanent sterilization History History 4 Para 4 Hx # Term Pregnancies Multiple births Hx # Pregnancies Ectopic pregnancies AB induced Hx Number of Living Children AB spontaneous Exam Const General: cooperative, healthy appearing, uncomfortable (leaned forward over stretcher), no acute distress, well developed and well groomed Nutritional Appearance: average body habitus and well nourished Orientation: alert and awake Eyes General: appearance normal, both eyes and all related structures Neck Neck: normal visual inspection, full ROM, no lymphadenopathy and no meningeal signs Resp Effort & Inspection: normal respiratory effort and able to speak in complete sentences Auscultation: clear to auscultation bilaterally, no rales, no rhonchi and no wheezes Cardio Rate: tachycardic Rhythm: regular rhythm Heart Sounds: S1 normal and S2 normal Back/Spine/Pelvis Cervical Spine: normal cervical lordosis, No cervical muscular tenderness, No pain with cervical ROM, No cervical spinal tenderness and No step off deformity Thoracic/Lumbar Spine: thoracic and lumbar spine normal to inspection, No bend over test abnormal, No paraspinal tenderness, thoraco-lumbar ROM limited, No thoracic spinal tenderness and No lumbar spinal tenderness Sacroiliac joints: on the right tender to palpation and on the left nontender Skin General skin exam: no rashes or lesions noted Neuro General: patient alert and patient awake Cognition: normal cognition Speech: speech normal Gait: normal gait Motor: muscle tone normal throughout, strength 5/5 throughout, no movement abnormalities noted and no fasciculations Sensory Exam: no sensory deficits noted (no saddle paresthesias) DTR's: Rt Patellar: 2+ and Lt Patellar: 2+ Extrem General: normal to inspection, full ROM, capillary refill normal, no joint enlargement, no pedal edema, no calf tenderness and normal gait Psych Appearance: grossly normal and well kempt Mental Status: mental status grossly normal Speech and Movement: speech and movement normal Course Vital Signs Vital signs: Vital Signs Temperature 35.4 C L 07/29/22 12:38 Pulse 120 H 07/29/22 12:38 Respiratory Rate 16 07/29/22 12:38 Blood Pressure 117/65 07/29/22 12:38 Pulse Oximetry 98 07/29/22 12:38 Temperature 35.4 C L 07/29/22 12:38 Temperature Source Skin 07/29/22 12:38 Pulse 120 H 07/29/22 12:38 Respiratory Rate 16 07/29/22 12:38 Respiratory Effort 07/29/22 12:46 Blood Pressure 117/65 07/29/22 12:38 Blood Pressure Position Sitting 07/29/22 12:38 Pulse Oximetry 98 07/29/22 12:38 Oxygen Delivery Method Room Air 07/29/22 12:38 Oxygen Flow Rate 0 07/29/22 12:38 Pain Level 8 07/29/22 12:38 Comment ice and heat 07/29/22 12:38
[2022-07-29] MEDS: Ketorolac 30 MG/ML VIAL IM (14:18)
[2022-07-29] MEDS: Acetaminophen 500 MG TAB 1000 MG PO (14:19)
[2022-07-29] MEDS: Lidocaine 5% Patch 1 PATCH TP (14:21)
[2022-07-29 14:57] VITALS: BP 120/63; PULSE 92; RESP 17; O2SAT 98
== END 2022-07-29 15:55 | disposition home or self-care (01) ==
PROVIDERS: Emergency Provider Physician Assistant
DX: M54.50 Low back pain, unspecified (principal); X50.0XXA Overexertion from strenuous movement or load, initial encounter
CPT/HCPCS: 96372; 99284; 99283; J1885

== ENCOUNTER 2022-09-27 08:23 | Emergency (ER) | payer OTHER, MEDICAID, SELFPAY ==
[2022-09-27 08:30] VITALS: BP 111/80; PULSE 109; RESP 18; TEMP 37; O2SAT 98
[2022-09-27] MEDS: Dexamethasone 4 MG TAB PO (08:50)
[2022-09-27] MEDS: Acetaminophen 500 MG TAB 1000 MG PO (08:51)
[2022-09-27] MEDS: Ketorolac 15 MG/ML VIAL IM (08:57)
--- NOTE | 2022-09-27 09:12 | ED.GENADUL_ITS ---
Discharge Plan Disposition Patient Disposition: Home Condition: Stable Discharge Details Clinical Impression: Acute left lumbar radiculopathy Primary Care Provider: Unknown,Unknown ED Provider: Danielle Ulloa Home Meds and New Rx's Prescriptions: New methocarbamol 1,000 mg tablet 1,000 mg PO QID Qty: 14 0RF dexamethasone 4 mg tablet 4 mg PO DAILY Qty: 4 0RF lidocaine [Lidoderm] 5 % adhesive patch,medicated 1 patch topical DAILY Qty: 15 0RF Rx Instructions: leave on most painful area for up to 12 hrs Continued fluticasone propionate [Flovent HFA] 110 mcg/actuation HFA aerosol inhaler 2 puff IH BID Qty: 12 2RF Rx Instructions: with spacer ibuprofen 200 MG capsule 800 mg PO Q6H PRN sertraline 100 mg tablet 100 mg PO DAILY cyclobenzaprine 10 mg tablet 10 mg PO HS cetirizine-pseudoephedrine [Zyrtec-D] 5-120 mg tablet extended release 12 hr 1 tab PO DAILY montelukast 10 mg tablet 10 mg PO DAILY albuterol sulfate [ProAir HFA] 90 mcg/actuation HFA aerosol inhaler 2 puff inhalation Q6H PRN acetaminophen [Tylenol] 325 MG tablet 650 mg PO Q4H PRN PRN0RF gabapentin 300 MG capsule 2 cap PO DAILY MDD 1500 bupropion HCl 150 mg tablet sustained-release 12 hr 1 tab PO DAILY Label Comments: TAKE ONE TABLET BY MOUTH TWICE A DAY naltrexone 50 mg tablet 25 mg PO BID Label Comments: TAKE 1/2 TABLET ORALLY TWO TIMES A DAY Discharge Instructions Additional Instructions: Take the Decadron daily, you received a dose today already Take methocarbamol, do not combine with Flexeril Use the Lidoderm patch, 12 hours on, 12 hours off Should you have strength or sensation change, changes in bowel or bladder, or with any new or worsening complaints, please. Evaluated Medical Decision Making This 36-year-old female presents with back pain with radiation into her legs History of similar back pain in the past exacerbated by activity Given Toradol and Tylenol Decadron and methocarbamol Recheck in 3 to 5 days with persistent pain Return earlier with new or worsening complaints HPI General Date/Time Provider Initiated Documentation: 09/27/22 08:24 . HPI Narrative: This 36-year-old female presents with back pain acute exacerbation of chronic pain. States she left hand a off her 's feet yesterday and the pain started shortly thereafter. She states the pain radiates down her left leg. She denies changes in bowel or bladder. She has any strength or sensation change. She denies any chest pain or shortness of breath. She has is abdominal pain or chance of . Denies groin numbness. Related Data Home Medications Medication Instructions Recorded Confirmed acetaminophen 325 mg tablet 650 mg PO Q4H PRN PRN 02/17/16 09/27/22 (Tylenol) ibuprofen 200 mg capsule 800 mg PO Q6H PRN 08/19/17 09/27/22 fluticasone propionate 110 2 puff inhalation BID asthma #12 09/01/18 09/27/22 mcg/actuation HFA aerosol inhaler grams (Flovent HFA) albuterol sulfate 90 mcg/actuation 2 puff inhalation Q6H PRN 08/29/21 09/27/22 aerosol inhaler (ProAir HFA) cetirizine 5 mg-pseudoephedrine ER 1 tab PO DAILY 08/29/21 09/27/22 120 mg tablet,extended release,12hr (Zyrtec-D) cyclobenzaprine 10 mg tablet 10 mg PO HS 08/29/21 09/27/22 montelukast 10 mg tablet 10 mg PO DAILY 08/29/21 07/29/22 sertraline 100 mg tablet 100 mg PO DAILY 08/29/21 09/27/22 bupropion HCl 150 mg tablet,12 hr 1 tab PO DAILY 07/29/22 09/27/22 sustained-release gabapentin 300 mg capsule 2 cap PO DAILY 07/29/22 09/27/22 naltrexone 50 mg tablet 25 mg PO BID 07/29/22 07/29/22 dexamethasone 4 mg tablet 4 mg PO DAILY #4 tabs 09/27/22 lidocaine 5 % topical patch 1 patch topical DAILY #15 ea 09/27/22 (Lidoderm) methocarbamol 1,000 mg tablet 1,000 mg PO QID #14 tabs 09/27/22 Previous Rx's Medication Instructions Recorded acetaminophen 325 mg tablet 650 mg PO Q4H PRN PRN 02/17/16 (Tylenol) fluticasone propionate 110 2 puff inhalation BID asthma #12 09/01/18 mcg/actuation HFA aerosol inhaler grams (Flovent HFA) dexamethasone 4 mg tablet 4 mg PO DAILY #4 tabs 09/27/22 lidocaine 5 % topical patch 1 patch topical DAILY #15 ea 09/27/22 (Lidoderm) methocarbamol 1,000 mg tablet 1,000 mg PO QID #14 tabs 09/27/22 Allergies Allergy/AdvReac Type Severity Reaction Status Date / Time latex AdvReac Mild ITCHING,DRY Verified 09/27/22 08:33 SKIN General Stated Complaint: Nk/Back Pain JACY: 4 Review of Systems All systems reviewed & are unremarkable except as noted in HPI and below PFSH All Active Problems (Updated 09/27/22 @ 08:50 by ELIZABETH Soriano) Acute left lumbar radiculopathy (Acute) Bilateral carpal tunnel syndrome (Acute) Acute foot pain (Acute) Gastroesophageal reflux disease (Chronic 05/27/12) Fibromyalgia (Chronic 05/23/17) Asthma (Chronic 05/27/12) Medical History Allergic asthma Asthma Carpal tunnel syndrome Depression, major, recurrent, moderate Hx of diabetes mellitus Lumbar radiculopathy Migraine Surgical History Ligation of fallopian tube (02/16/16) PPTL. aoc Family History Grandfather Essential hypertension Heart disease Family history of colon cancer Grandmother Essential hypertension Diabetes Heart disease aunt Diabetes Mother No problems noted. Father Essential hypertension Alcohol abuse Hyperlipidemia Sister Mental disorder Asthma Brother No problems noted. Grandfather Heart disease Grandmother No problems noted. Social History Smoking/Tobacco Use Status: Former Tobacco Use Smoking risk assessment performed?: Yes Alcohol Intake: never Drug use: Rarely Substance use type: marijuana Do you feel safe at home: Yes Do you feel safe in your relationship?: Yes Female Reproductive History Menstrual Duration of menses: 3-5 days control method: permanent sterilization History History 4 Para 4 Hx # Term Pregnancies Multiple births Hx # Pregnancies Ectopic pregnancies AB induced Hx Number of Living Children AB spontaneous Exam Const General: cooperative, comfortable and no acute distress Eyes Pupils: PERRL Resp Effort & Inspection: normal respiratory effort Cardio Rate: regular rate GI Inspection: normal to inspection Back/Spine/Pelvis Back: no CVA tenderness Other: Midline tenderness lumbar spine Skin General skin exam: no rashes or lesions noted Neuro General: patient alert Other: no strength or sensation change, negative straight leg raise DTRs, strength, sensation intact to bilateral lower EXTR Extrem General: normal to inspection Other: distal pulses intact Course Vital Signs Vital signs: Vital Signs Temperature 37.0 C 09/27/22 08:30 Pulse 109 H 09/27/22 08:30 Respiratory Rate 18 09/27/22 08:30 Blood Pressure 111/80 09/27/22 08:30 Pulse Oximetry 98 09/27/22 08:30 Temperature 37.0 C 09/27/22 08:30 Temperature Source Oral 09/27/22 08:30 Pulse 109 H 09/27/22 08:30 Respiratory Rate 18 09/27/22 08:30 Respiratory Effort Non-Labored 09/27/22 08:35 Blood Pressure 111/80 09/27/22 08:30 Blood Pressure Position Sitting 09/27/22 08:30 Pulse Oximetry 98 09/27/22 08:30 Oxygen Delivery Method Room Air 09/27/22 08:30 Oxygen Flow Rate 0 09/27/22 08:30
== END 2022-09-27 09:02 | disposition home or self-care (01) ==
PROVIDERS: Emergency Provider Physician Assistant
DX: M54.16 Radiculopathy, lumbar region (principal)
CPT/HCPCS: 96372; 99284; 99283; J1885; J8540

== ENCOUNTER 2023-12-22 18:27 | Emergency (ER) | payer OTHER, SELFPAY ==
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
== END 2023-12-22 19:10 | disposition home or self-care (01) ==
PROVIDERS: Emergency Provider Physician Assistant; PCP Family Medicine
DX: S60.511A Abrasion of right hand, initial encounter (principal); S60.811A Abrasion of right wrist, initial encounter; Y04.8XXA Assault by other bodily force, initial encounter; Z23 Encounter for immunization
CPT/HCPCS: 90471; 90715; 99283

== ENCOUNTER 2024-02-11 13:17 | Outpatient (REF) | payer OTHER, SELFPAY ==
[2024-02-11 21:09] LABS: Hemoglobin A1C 5.6 % (<5.7)
[2024-02-11 21:14] LABS: ALT 25 U/L (14-59); AST 14 U/L (15-37); Albumin 3.9 g/dL (3.4-5.0); Alkaline Phosphatase 94 U/L (46-116); Anion Gap 11.6 mmol/L (3-11); BUN 10 mg/dL (7-18); Bilirubin, Total 0.3 mg/dL (0.2-1.0); CO2 26.4 mmol/L (21.0-32.0); CREATININE 0.8 mg/dL (0.55-1.02); Calcium 9.1 mg/dL (8.5-10.1); Chloride 105 mmol/L (98-107); Estimated GFR 97.26 (mL/min/1.73m2); Glucose 102 mg/dL (74-106); Sodium 143 mmol/L (136-145); Total Protein 7.1 g/dL (6.4-8.2)
[2024-02-12 20:56] LABS: HBs Antibody, Quant 112.4 mIU/mL (See Note); Hepatitis B Surface Ab Positive (See Note)
== END 2024-02-11 13:18 | disposition home or self-care (01) ==
LOC: NCHCN 13:17
PROVIDERS: PCP Family Medicine; Visit Provider Family Medicine
DX: R73.03 Prediabetes (principal); Z78.9 Other specified health status
CPT/HCPCS: 80053; 86706; 83036

== ENCOUNTER → 2024-02-26 02:27 | Outpatient (CLI) | payer OTHER, SELFPAY ==
--- NOTE | 2024-02-26 | DI.MRI_ITS ---
Exam(s) MR CERVICAL SPINE WO EXAM: MR CERVICAL SPINE WO CLINICAL HISTORY: NECK PAIN, M54.2, CERVICALGIA TECHNIQUE: Multiplanar multisequence MRI of the cervical spine was performed without intravenous con trast. COMPARISON: CR XR CERVICAL SPINE COMP 4-5V from 04/19/2021 MR MR CERVICAL SPINE WO from 04/19/2021 FINDINGS: BONES: Vertebral body heights are maintained. Intervertebral disc spaces are normal. Alignment is nor mal. Bone marrow signal intensity is within normal limits. CERVICAL CORD: Craniovertebral junction is unremarkable. The cervical cord is normal size and signal intensity. SOFT TISSUES: Unremarkable. C2-3: No disc herniation or bulge is identified. No significant central spinal canal or neural forami nal stenosis. C3-4: No disc herniation or bulge is identified. No significant central spinal canal or neural forami nal stenosis C4-5: No disc herniation or bulge is identified. No significant central spinal canal or neural forami nal stenosis C5-6: There is again seen a diffuse disc bulge at C5-C6. It appears grossly unchanged compared to th e prior examination. There is a mild impression on the anterior thecal sac with flattening of the an terior spinal cord but no significant central spinal canal stenosis. There is very mild bilateral ne ural foraminal narrowing. C6-7: There is again seen a small left paracentral disc herniation. No significant central spinal ca nal stenosis is seen. No nerve root compression is seen. No significant central spinal canal or lani ral foraminal stenosis C7-T1: No disc herniation or bulge is identified. No significant central spinal canal or neural ronald inal stenosis IMPRESSION: 1. Stable diffuse disc bulge at C5-6 with very mild bilateral neural foraminal narrowing. No signifi cant central spinal canal stenosis. 2. Stable left paracentral disc herniation at C6-C7 without significant central spinal canal or neura l foraminal stenosis. 3. Normal signal and appearance of the cervical spinal cord. DATA REPOSITORY:
== END ==
PROVIDERS: PCP Family Medicine; Visit Provider Family Medicine
DX: M50.122 Cervical disc disorder at C5-C6 level with radiculopathy (principal)
CPT/HCPCS: 72141

== ENCOUNTER 2024-05-22 17:01 | Emergency (ER) | payer OTHER, SELFPAY ==
[2024-05-22 17:07] VITALS: BP 116/77; PULSE 99; RESP 16; TEMP 36.6; O2SAT 98
[2024-05-22] MEDS: Ketorolac 15 MG/ML VIAL IM (17:12)
--- NOTE | 2024-05-22 17:15 | ED.GENADUL_ITS ---
Discharge Plan Disposition Patient Disposition: Home Condition: Stable Discharge Details Clinical Impression: Lumbar back pain Primary Care Provider: Clementine Lawrence ED Provider: Randolph Lama Home Meds and New Rx's Prescriptions: New prednisone 20 mg tablet 60 mg PO DAILY 4 Days Qty: 12 0RF Continued fluticasone propionate [Flovent HFA] 110 mcg/actuation HFA aerosol inhaler 2 puff IH BID Qty: 12 2RF Rx Instructions: with spacer ibuprofen 200 MG capsule 800 mg PO Q6H PRN sertraline 100 mg tablet 100 mg PO DAILY cyclobenzaprine 10 mg tablet 10 mg PO HS cetirizine-pseudoephedrine [Zyrtec-D] 5-120 mg tablet extended release 12 hr 1 tab PO DAILY montelukast 10 mg tablet 10 mg PO DAILY albuterol sulfate [ProAir HFA] 90 mcg/actuation HFA aerosol inhaler 2 puff inhalation Q6H PRN acetaminophen [Tylenol] 325 MG tablet 650 mg PO Q4H PRN PRN0RF gabapentin 300 MG capsule 2 cap PO DAILY MDD 1500 bupropion HCl 150 mg tablet sustained-release 12 hr 1 tab PO DAILY Patient Comments: TAKE ONE TABLET BY MOUTH TWICE A DAY naltrexone 50 mg tablet 25 mg PO BID Patient Comments: TAKE 1/2 TABLET ORALLY TWO TIMES A DAY methocarbamol 1,000 mg tablet 1,000 mg PO QID Qty: 14 0RF dexamethasone 4 mg tablet 4 mg PO DAILY Qty: 4 0RF lidocaine [Lidoderm] 5 % adhesive patch,medicated 1 patch topical DAILY Qty: 15 0RF Rx Instructions: leave on most painful area for up to 12 hrs Discharge Instructions Additional Instructions: Follow-up with your primary care provider within 1 to 2 weeks especially if not improving If you feel more ill or have new symptoms such as high fevers or severe worsening pain return to the emergency department for reevaluation HPI General Mode of arrival: ambulatory . Date/Time Provider Initiated Documentation: 05/22/24 17:02 . Limitations to Documentation: no limitations . Information obtained by: patient . History of Present Illness 38 year old F presents to the emergency department with the chief complaint of lower back pain, described as moderate, Quality is described as aching, Patient started experiencing this week(s) (1) and it has been constant. No relieving factors improve symptom(s), No exacerbating factors reported . Patient notes no other symptoms.. Patient did receive the following treatments prior to arrival, none Related Data Home Medications ?Medication ?Instructions ?Recorded ?Confirmed acetaminophen 325 mg tablet 650 mg (2 x 325 mg) PO Q4H PRN PRN 02/17/16 05/22/24 (Tylenol) ibuprofen 200 mg capsule 800 mg PO Q6H PRN 08/19/17 05/22/24 fluticasone propionate 110 2 puff inhalation BID asthma #12 09/01/18 05/22/24 mcg/actuation HFA aerosol inhaler grams (Flovent HFA) albuterol sulfate 90 mcg/actuation 2 puff inhalation Q6H PRN 08/29/21 05/22/24 aerosol inhaler (ProAir HFA) cetirizine 5 mg-pseudoephedrine ER 1 tab PO DAILY 08/29/21 05/22/24 120 mg tablet,extended release,12hr (Zyrtec-D) cyclobenzaprine 10 mg tablet 10 mg PO HS 08/29/21 05/22/24 montelukast 10 mg tablet 10 mg PO DAILY 08/29/21 05/22/24 sertraline 100 mg tablet 100 mg PO DAILY 08/29/21 05/22/24 bupropion HCl 150 mg tablet,12 hr 1 tab PO DAILY 07/29/22 05/22/24 sustained-release gabapentin 300 mg capsule 2 cap PO DAILY 07/29/22 05/22/24 naltrexone 50 mg tablet 25 mg PO BID 07/29/22 05/22/24 dexamethasone 4 mg tablet 4 mg PO DAILY #4 tabs 09/27/22 05/22/24 lidocaine 5 % topical patch 1 patch topical DAILY #15 ea 09/27/22 05/22/24 (Lidoderm) methocarbamol 1,000 mg tablet 1,000 mg PO QID #14 tabs 09/27/22 05/22/24 prednisone 20 mg tablet 60 mg (3 x 20 mg) PO DAILY 4 days 05/22/24 #12 tabs Previous Rx's ?Medication ?Instructions ?Recorded acetaminophen 325 mg tablet 650 mg (2 x 325 mg) PO Q4H PRN PRN 02/17/16 (Tylenol) fluticasone propionate 110 2 puff inhalation BID asthma #12 09/01/18 mcg/actuation HFA aerosol inhaler grams (Flovent HFA) dexamethasone 4 mg tablet 4 mg PO DAILY #4 tabs 09/27/22 lidocaine 5 % topical patch 1 patch topical DAILY #15 ea 09/27/22 (Lidoderm) methocarbamol 1,000 mg tablet 1,000 mg PO QID #14 tabs 09/27/22 prednisone 20 mg tablet 60 mg (3 x 20 mg) PO DAILY 4 days 05/22/24 #12 tabs Allergies Allergy/AdvReac Type Severity Reaction Status Date / Time latex AdvReac Mild ITCHING,DRY Verified 05/22/24 17:10 SKIN General Stated Complaint: Nk/Back Pain JACY: 4 Review of Systems All systems reviewed & are unremarkable except as noted in HPI and below Constitutional Constitutional: Denies chills, Denies fever(s) and Denies weakness Cardiovascular Cardiovascular: Denies chest pain and Denies dyspnea Respiratory Respiratory: Denies cough and Denies dyspnea Gastrointestinal Gastrointestinal: Denies abdominal pain, Denies nausea and Denies vomiting Musculoskeletal Musculoskeletal: Reports back pain Neurologic Neurologic: Denies weakness Exam Const General: no acute distress Orientation: alert HENTX Head: normal to inspection Ears: external ears normal General nose exam: external nose normal Mouth: moist mucous membranes Eyes General: appearance normal, both eyes and all related structures Neck Neck: normal visual inspection Resp Effort & Inspection: normal respiratory effort and able to speak in complete sentences Cardio Rate: regular rate Back/Spine/Pelvis Back: No erythema and No warmth Neuro General: patient alert and patient oriented x3 Extrem General: normal to inspection Psych Mental Status: mental status grossly normal Course Vital Signs Vital signs: Vital Signs Temperature 36.6 C 05/22/24 17:07 Pulse 99 H 05/22/24 17:07 Respiratory Rate 16 05/22/24 17:07 Blood Pressure 116/77 05/22/24 17:07 Pulse Oximetry 98 05/22/24 17:07 Temperature 36.6 C 05/22/24 17:07 Pulse 99 H 05/22/24 17:07 Respiratory Rate 16 05/22/24 17:07 Respiratory Effort Normal 05/22/24 17:11 Blood Pressure 116/77 05/22/24 17:07 Pulse Oximetry 98 05/22/24 17:07 Pain Level 9 05/22/24 17:07 Medical Decision Making 38-year-old female comes in with lower back pain she says she strained it while doing yard work a week ago. She denies any falls or trauma. No fevers or difficulty urinating. She localizes the pain to the left lower lumbar region and radiates down the back of her left leg. She has no saddle anesthesia. She is no findings on history or exam to suggest cauda equina or spinal epidural abscess. I suspect lumbar strain, will treat with Toradol and prednisone and reassess. Patient feels slightly better, will place on a short course of prednisone she will follow-up with her PCP and return precautions given Differential Diagnosis Differential Diagnosis: Back strain, musculoskeletal back pain, disc herniation Quality:SDOH Health Related Social Needs: No Data to Display PFSH All Active Problems (Updated 05/22/24 @ 17:49 by Randolph Lama MD) Lumbar back pain (Acute) Bilateral carpal tunnel syndrome (Acute) Acute foot pain (Acute) Gastroesophageal reflux disease (Chronic 05/27/12) Fibromyalgia (Chronic 05/23/17) Asthma (Chronic 05/27/12) Medical History Allergic asthma Asthma Carpal tunnel syndrome Depression, major, recurrent, moderate Hx of diabetes mellitus Lumbar radiculopathy Migraine Surgical History Ligation of fallopian tube (02/16/16) PPTL. aoc Family History Grandfather Essential hypertension Heart disease Family history of colon cancer Grandmother Essential hypertension Diabetes Heart disease aunt Diabetes Mother No problems noted. Father Essential hypertension Alcohol abuse Hyperlipidemia Sister Mental disorder Asthma Brother No problems noted. Grandfather Heart disease Grandmother No problems noted. Social History Smoking/Tobacco Use Status: Former Tobacco Use Smoking risk assessment performed?: Yes Alcohol Intake: never Drug use: Rarely Substance use type: marijuana Housing: house Do you feel safe at home: Yes Do you feel safe in your relationship?: Yes Female Reproductive History Menstrual Duration of menses: 3-5 days control method: permanent sterilization History History 4 Para 4 Hx # Term Pregnancies Multiple births Hx # Pregnancies Ectopic pregnancies AB induced Hx Number of Living Children AB spontaneous
[2024-05-22] MEDS: predniSONE 20 MG TAB (17:41)
== END 2024-05-22 17:52 | disposition home or self-care (01) ==
PROVIDERS: Emergency Provider Emergency Medicine; PCP Family Medicine
DX: M54.50 Low back pain, unspecified (principal); Z87.891 Personal history of nicotine dependence
CPT/HCPCS: 96372; 99284; 99283; J1885; J7512

== ENCOUNTER 2024-08-06 00:39 | Outpatient (CLI) | payer OTHER, SELFPAY ==
--- NOTE | 2024-08-06 | DI.MRI_ITS ---
Exam(s) MR LUMBAR SPINE WO EXAM: MR LUMBAR SPINE WO CLINICAL HISTORY: LUMBAR REGION RADICULOPATHY M54.16 PAIN W/ PRESSURE. TECHNIQUE: Multiplanar multisequence MRI of the Lumbar spine was performed. COMPARISON: MR MRI - LUMBAR SPINE WO CONTRAST from 05/30/2011 MR MRI - LUMBAR SPINE WO CONTRAST from 07/18/2017 MR MR LUMBAR SPINE WO from 09/15/2020 FINDINGS: Bones: The last intervertebral disc space is designated the L5/S1 level for the numbering purpose of this examination. The vertebral body heights are well maintained. Alignment is satisfactory. The si gnal characteristics are unremarkable. Cord: The conus tip ends at the L1 level. It is of normal size and signal intensity. T12-L1: No disc herniations or bulges are present. No central spinal canal or neural foraminal stenos is. L1-2: No disc herniations or bulges are present. No central spinal canal or neural foraminal stenosis . L2-3: No disc herniations or bulges are present. No central spinal canal or neural foraminal stenosis . L3-4: No disc herniations or bulges are present. No central spinal canal or neural foraminal stenosis . L4-5: There has been interval increase in size of the disc herniation at L4-L5 since the prior examin ation. There is extension into the neural foramen bilaterally causing mild bilateral neural foramina l stenosis, right greater than left. There is right lateral recess stenosis compressing the right L5 nerve root. There also appears to be compression of the left L5 nerve root. There is hypertrophy o f the ligamentum flavum. These all contribute to cause moderately severe central spinal canal stenos is. This is also progressed since the prior examination. L5-S1: There is a disc herniation at this level which has increased in size. There is now a left par acentral component present. It causes left lateral recess stenosis and compresses the left S1 nerve root. There is also mild central spinal canal stenosis.No significant neural foraminal stenosis is p resent. Soft tissues: The visualized SI joints and sacrum are well maintained. The paraspinal soft tissues ar e unremarkable. IMPRESSION: 1. Interval increase in size of the disc herniation at L4-L5 since 09/15/2020. It now causes moderat edmund severe central spinal canal stenosis and mild bilateral neural foraminal stenosis, right greater than left. There is compression of both the right and left L5 nerve root. 2. Interval increase in size of the disc herniation at L5-S1 with a left paracentral component which causes left lateral recess stenosis compressing the left S1 nerve root. There is also mild central s sebastian canal stenosis. DATA REPOSITORY:
== END 2024-08-06 00:59 ==
LOC: DI 00:39
PROVIDERS: PCP Family Medicine; Visit Provider Nurse Practitioner Family
DX: M51.26 Other intervertebral disc displacement, lumbar region (principal)
CPT/HCPCS: 72148

== ENCOUNTER 2025-06-20 17:41 | Outpatient (REF) | payer OTHER, SELFPAY ==
[2025-06-20 21:36] LABS: HCT 40.0 % (36.0-46.0); HGB 12.8 g/dL (11.2-15.7); MCH 26.8 pg (27.0-33.0); MCHC 32.0 % (32.0-36.0); MCV 84 fL (80-95); MPV 11.2 fL (8.0-11.0); Platelet Count 361 10^3/uL (130-400); RBC 4.78 10^6/uL (3.93-5.22); RDW 13.3 % (11.7-14.6); RDW-SD 40.9 fL; WBC 8.42 10^3/uL (4.4-10.8)
[2025-06-20 22:10] LABS: TSH (W/Ref FT4) 0.84 uIU/mL (0.36-3.74)
[2025-06-20 23:38] LABS: Hemoglobin A1C 5.4 % (<5.7)
== END 2025-06-20 17:42 | disposition home or self-care (01) ==
LOC: NCHCN 17:41
PROVIDERS: PCP Family Medicine; Visit Provider Family Medicine
DX: E66.9 Obesity, unspecified (principal)
CPT/HCPCS: 85027; 83036; 84443